=== PATIENT | female | born 1940 | race Caucasian/White ===

== ENCOUNTER 2024-04-30 16:29 | Inpatient (IN) | payer OTHER, BC ==
[2024-04-30] MEDS ORDERED: ASPIRIN 81 MG CHEWABLE TABLET ONE (16:45)
[2024-04-30] MEDS ORDERED: NA CHLORIDE 0.9% 1,000 ML ONE ×2 (16:45→17:46)
[2024-04-30 17:12] LABS: Hematocrit 40.1 % (36.0-45.0); Hemoglobin 13.5 g/dL (12.0-15.0); MCH 33.5 pg (27.0-35.0); MCHC 33.6 g/dL (32.0-36.0); MCV 99.8 fL (80-100); MPV 9.1 fL (7.6-11.3); Platelets 232 thou/uL (152-406); RBC Red Blood Cell Count 4.02 M/uL (3.86-4.86); Red Cell Distribution Width 14.1 % (12.1-15.2)
[2024-04-30] MEDS ORDERED: METOPROLOL TARTRATE 5 MG/5 ML INJ IV ONE (17:18)
[2024-04-30 17:30] LABS: PT Prothrombin Time 11.1 SECONDS (9.4-12.5); PTT, Activated Partial Thromb 27.8 SECONDS (24.3-36.9); Protime INR 1.06
--- NOTE | 2024-04-30 17:34 | RAD REPORT ---
EXAM: Chest Single View HISTORY: chest nely COMPARISON: 07/11/2016 FINDINGS: LUNGS/PLEURA: New consolidative airspace disease present the right lower lobe. MEDIASTINUM: The mediastinal silhouette is within normal limits. CARDIAC: Mild cardiomegaly UPPER ABDOMEN: No significant abnormality. BONES: No acute abnormality. LINES/TUBES/OTHER: N/A IMPRESSION: New right lower lobe consolidation concerning for pneumonia/pneumonitis. Imaging follow-up in 4-6 wee ks is suggested to ensure improvement and/or resolution.
[2024-04-30 17:59] LABS: Albumin 2.8 g/dL (3.4-5.0); Albumin/Globulin Ratio 0.5 (1.1-1.8); Anion Gap 19.2 mEq/L (5.0-15.0); Bilirubin Total 0.6 mg/dL (0.2-1.0); Globulin 5.5 g/dL (2.3-3.5); Magnesium 2.5 mg/dL (1.6-2.4); Potassium 3.2 mEq/L (3.5-5.1); Protein, Total 8.3 g/dL (6.4-8.2)
[2024-04-30 18:12] LABS: Troponin High Sensitivity 305.5 pg/mL (<58.9)
[2024-04-30 18:20] LABS: Differential Total Cells Count 100; Eosinophils 1 % (0-3); Lymphocytes 36 % (15-42); Monocytes 14 % (0-10); Segmented Neutrophils 49 % (40-80)
[2024-04-30 18:23] LABS: Anisocytosis 1+; Blood Morphology Comment NOTED (NOT SEEN); Platelet Estimate ADEQ; Poikilocytosis 1+
[2024-04-30] MEDS ORDERED: DIGOXIN 0.25 MG/ML AMP ONE (18:35)
[2024-04-30] MEDS ORDERED: AZITHROMYCIN 500 MG INJ IVPB ONE (19:24)
[2024-04-30] MEDS ORDERED: CEFTRIAXONE 1000 MG/VIAL ONE (19:24)
[2024-04-30] MEDS ORDERED: NA CHLORIDE 0.9% 50 ML ONE (19:25)
[2024-04-30] MEDS ORDERED: NA CHLORIDE 0.9% 250 ML ONE (19:25)
--- NOTE | 2024-04-30 19:46 | EDPHYS ---
Physician Documentation [facility] Name: Lizbet Mackenzie Age: 84 yrs Sex: Female : 1940 Arrival Date: 04/30/2024 Time: 16:29 Bed 2 Private MD: ED Physician Magdiel Mclaughlin HPI: 04/30 16:54 This 84 yrs old Female presents to ER via Unassigned with complaints of Chest Pain, ms3 Breathing Difficulty, Decreased Appetite. 16:54 Lizbet Mackenzie presents to the Emergency Department with a history of atrial ms3 fibrillation, myesthenia gravis, and bronchiectasis. She reports feeling unwell since [place], with worsening symptoms over the weekend. She has been unable to eat or drink adequately, consuming only minimal fluids and some ice cream, and experiencing diarrhea. She does not recall events from Monday.. Historical: - Allergies: 16:56 No Known Allergies; cm10 - Home Meds: 16:56 losartan-hydrochlorothiazide 100-25 mg oral tablet [Active]; pyridostigmine bromide 60 cm10 mg oral tablet three times a day [Active]; metoprolol tartrate 50 mg Oral tablet daily [Active]; prednisone 1 mg Oral tablet 2 tabs daily [Active]; Xyzal 5 mg oral tablet 1 tab daily [Active]; - PMHx: 16:56 Myasthenia Gravis; Hypertensive disorder; cm10 - Immunization history:: Adult Immunizations up to date. - Infectious Disease History:: Denies. - Social history:: Smoking status: unknown. ROS: 16:54 Constitutional: Negative for fever, and chills. Cardiovascular: Negative for chest ms3 pain, and palpitations. Abdomen/GI: Negative for abdominal pain, nausea, vomiting, diarrhea, and constipation, 16:54 MS/Extremity: Negative for injury and deformity, Skin: Negative for injury, rash, and discoloration, 16:54 Respiratory: Positive for cough, shortness of breath, Exam: 16:54 Constitutional: This is a well developed, well nourished patient who is awake, alert, ms3 and in no acute distress. Respiratory: Lungs have equal breath sounds bilaterally, clear to auscultation and percussion. No rales, rhonchi or wheezes noted. No increased work of breathing, no retractions or nasal flaring. 16:54 Skin: Warm, dry with normal turgor. Normal color with no rashes, no lesions, and no evidence of cellulitis. MS/ Extremity: Pulses equal, no cyanosis. Neurovascular intact. Full, normal range of motion. 16:54 Cardiovascular: Rate: tachycardic, Rhythm: irregularly irregular, Edema: is not appreciated, 17:03 ECG was reviewed by the Attending Physician. ms3 Vital Signs: 16:45 BP 114 / 85; Pulse 134; Resp 20; Pulse Ox 100% on 3 lpm NC; ld1 16:53 BP 109 / 73; Pulse 154; Resp 24; Temp 96.4(TE); Pulse Ox 90% on R/A; Weight 58.51 kg; ld1 Height 5 ft. 5 in. ; Pain 8/10; 17:24 BP 105 / 88; Pulse 136; Resp 18; Pulse Ox 100% on 3 lpm NC; ld1 18:00 BP 108 / 90; Pulse 144; Resp 27; Pulse Ox 100% on 3 lpm NC; ld1 19:10 BP 106 / 66; Pulse 127; Resp 22; Temp 97.7(O); Pulse Ox 98% on 3 lpm NC; mt4 19:45 BP 124 / 73; Pulse 106; Resp 16; Pulse Ox 98% on 3 lpm NC; mt4 21:15 BP 123 / 69; Pulse 105; Resp 18; Pulse Ox 98% on 3 lpm NC; mt4 21:28 BP 123 / 69; Pulse 110; Resp 18; Pulse Ox 97% ; br2 22:50 BP 120 / 69; Pulse 108; Resp 16; Pulse Ox 95% on 3 lpm NC; mt4 16:53 Body Mass Index 21.47 (58.51 kg, 165.1 cm) ld1 16:53 Pain Scale: Adult ld1 Wilsey Coma Score: 20:00 Eye Response: spontaneous(4). Motor Response: obeys commands(6). Verbal Response: mt4 oriented(5). Total: 15. MDM: 16:54 Medical Screening Exam initiated ms3 16:54 Differential diagnosis: abnormal EKG, congestive heart failure pneumonia, Dehydration ms3 vs Gastroenteritis. 17:52 Transition of care: After a detail discussion of the patient's case, care is ms3 transferred to Magdiel Mclaughlin MD. ED course: Sepsis re-evaluation complete. 19:46 Data reviewed: vital signs, nurses notes, lab test result(s), EKG, radiologic studies. rt Consideration of Admission/Observation Patient was admitted/placed on observation. Management of patient was discussed with the following: Hospitalist: Agrees to admit. I considered the following discharge prescriptions or medication management in the emergency department Medications were administered in the Emergency Department. See MAR. Independent interpretation of the following test(s) in the Emergency Department X-Ray: My interpretation is Infiltrate seen on interpretation of x-ray images. Care significantly affected by the following chronic conditions: Hypertension. Counseling: I had a detailed discussion with the patient and/or guardian regarding the historical points, exam findings, and any diagnostic results supporting the discharge/admit diagnosis, lab results, radiology results, the need for further work-up and treatment in the hospital. Response to treatment: the patient's symptoms have markedly improved after treatment. 19:51 Post IV fluid administration reassessment for Sepsis: Client prescribed 30 mL/kg IVF. rt Sepsis focused reassessment complete. Focused assessment performed: April 30, 2024 at 19:51 Heart: Irregular rhythm. Tachycardia noted. Capillary refill examination performed. Capillary refill noted to be brisk. Peripheral pulse evaluation performed. Neuro: Cardio: Cardiovascular exam improved from previous exam. Heart rate and blood pressure have improved. 04/30 16:38 Order name: CBC with Diff; Complete Time: 18:30 ms3 04/30 16:38 Order name: Magnesium; Complete Time: 18:23 ms3 04/30 16:38 Order name: NT PRO-BNP; Complete Time: 18:23 ms3 04/30 16:38 Order name: PT-INR; Complete Time: 17:39 ms3 04/30 16:38 Order name: Troponin HS; Complete Time: 18:23 ms3 04/30 16:52 Order name: Blood Culture Adult (2) ms3 04/30 16:52 Order name: Lactate w/ 2H reflex if indic.; Complete Time: 18:02 ms3 04/30 17:08 Order name: PTT, Activated Partial Thromb; Complete Time: 17:39 EDMS 04/30 17:08 Order name: Comprehensive Metabolic Panel; Complete Time: 18:23 EDMS 04/30 17:50 Order name: Ghost Lactate-NO COLLECT Timer EDMS 04/30 18:21 Order name: Manual Differential; Complete Time: 18:30 EDMS 04/30 19:53 Order name: Urinalysis w/ reflexes EDMS 04/30 19:53 Order name: CBC with Automated Diff EDMS 04/30 19:53 Order name: CBC with Automated Diff EDMS 04/30 19:53 Order name: Comprehensive Metabolic Panel EDMS 04/30 19:53 Order name: Comprehensive Metabolic Panel EDMS 04/30 19:53 Order name: Magnesium EDMS 04/30 19:53 Order name: Magnesium EDMS 04/30 19:53 Order name: Phosphorus EDMS 04/30 19:53 Order name: Phosphorus EDMS 04/30 19:53 Order name: Troponin High Sensitivity EDMS 04/30 19:53 Order name: Troponin High Sensitivity EDMS 04/30 19:53 Order name: Troponin High Sensitivity EDMS 04/30 19:53 Order name: Troponin High Sensitivity EDMS 04/30 16:38 Order name: XRAY Chest (1 view); Complete Time: 17:39 ms3 04/30 16:38 Order name: Cardiac monitoring; Complete Time: 16:44 ms3 04/30 16:38 Order name: EKG - Nurse/Tech; Complete Time: 16:44 ms3 04/30 16:38 Order name: IV Saline Lock; Complete Time: 17:00 ms3 04/30 16:38 Order name: Labs collected and sent; Complete Time: 17:00 ms3 04/30 16:38 Order name: O2 Per Protocol; Complete Time: 16:44 ms3 04/30 16:38 Order name: O2 Sat Monitoring; Complete Time: 16:44 ms3 04/30 16:52 Order name: Accucheck; Complete Time: 16:59 ms3 04/30 16:52 Order name: IV Saline Lock - Large Bore; Complete Time: 16:59 ms3 04/30 16:52 Order name: Vital Signs; Complete Time: 16:59 ms3 04/30 17:00 Order name: Oxygen; Complete Time: 17:00 ms3 EC:03 Rate is 157 beats/min. Rhythm is irregularly irregular. Left axis deviation noted. ms3 Clinical impression: Atrial Fibrillation and with RVR. Interpreted by me. Reviewed by me. Administered Medications: 17:00 Drug: Aspirin PO Chewable Tablet 324 mg PO once; 81 mg tablets x 4 Route: PO; ld1 21:00 Follow up: Response: No adverse reaction mt4 17:00 Drug: NS 0.9% IV 1000 ml IV at 1000 ml once; to be given as a bolus over 60 minutes ld1 Route: IV; Rate: 1000 ml; Site: left forearm; 17:30 Follow up: Response: No adverse reaction; IV Status: Completed infusion; IV Intake: cm10 1000ml 17:25 Drug: Metoprolol IVP 5 mg IVP every 5 minutes; Hold for SBP < 100 or HR < 60. x3 Route: cm10 IVP; Site: left antecubital; 17:30 Follow up: Response: Cardiac rhythm is unchanged cm10 17:48 Drug: NS 0.9% IV 1000 ml IV at 1 bolus Per protocol; to be given as a bolus over 60 cm10 minutes Route: IV; Rate: 1 bolus; Site: left antecubital; 23:13 Follow up: Response: No adverse reaction; IV Status: Completed infusion; IV Intake: mt4 1000ml 18:40 Drug: Digoxin IVP 0.5 mg IVP once {Note: Administered by Richelle Barclay RN.} Route: IVP; ss Site: left antecubital; 21:00 Follow up: Response: No adverse reaction mt4 19:45 Drug: Rocephin IV 1 grams IV at calculated rate once; Given slow IV push per pharmacy mt4 instructions Route: IV; Rate: calculated rate; Site: left antecubital; 21:00 Follow up: Response: No adverse reaction; IV Status: Completed infusion mt4 19:45 Drug: AZITHromycin IVPB 500 mg IVPB once over 1 hrs; (mix in 250 mL NS) Route: IVPB; mt4 Infused Over: 1 hrs; Site: left antecubital; 23:12 Follow up: Response: No adverse reaction; IV Status: Completed infusion mt4 Disposition: 19:46 Critical Care:. rt Disposition Summary: 04/30/24 19:46 Hospitalization Ordered Notes: Hospitalization Status: Inpatient Admission rt Provider: Benoit Mason rt Location: Intensive Care Unit rt Condition: Guarded rt Problem: new rt Symptoms: have improved rt Bed/Room Type: Standard rt Room Assignment: 6-(04/30/24 22:02) kmf Diagnosis - Community-acquired pneumonia rt - Septic shock rt - Atrial fibrillation with rapid ventricular rate rt Forms: - Medication Reconciliation Form rt - SBAR form rt - Leadership Thank You Letter rt Critical care time excluding procedures: 19:46 Critical care time: Bedside Care: 30 minutes, Consultation: 5 minutes. Total time: 35 rt minutes Signatures: Dispatcher [employer] EDMS Krystyna Ziegler, RN RN ss Ning, Barrett, DO DO ms3 Richelle Barclay, RN RN ld1 Magdiel Mclaughlin MD MD rt Lupe Cyr RN RN cm10 Peyton Avilez [facility] Chelle Boyd, TAVO RN mt4 Corrections: (The following items were deleted from the chart) 16:38 16:38 Chest Single View+RAD.RAD.BRZ ordered. EDMS EDMS 17:00 17:00 Chest Single View+RAD.RAD.BRZ ordered. EDMS EDMS 17:08 16:38 BASIC METABOLIC PANEL+C.LAB.BRZ ordered. EDMS EDMS 17:08 16:53 COMPREHENSIVE METABOLIC PANEL+C.LAB.BRZ ordered. EDMS EDMS 17:08 16:53 PTT, ACTIVATED+COAG.LAB.BRZ ordered. EDMS EDMS 22:02 19:46 rt kmf
--- NOTE | 2024-04-30 19:46 | ER ---
Nurse's Notes [facility] Name: Lizbet Mackenzie Age: 84 yrs Sex: Female : 1940 Arrival Date: 04/30/2024 Time: 16:29 Bed 2 Private MD: Diagnosis: Community-acquired pneumonia;Septic shock;Atrial fibrillation with rapid ventricular rate Presentation: 04/30 16:53 Chief complaint: Patient states: Diarrhea, vomiting, chest pain onset Monday. Pt states cm10 that her pain radiates to her back. Pt cool and diaphoretic upon arrival. Coronavirus screen: Client denies travel out of the [place] in the last 14 days. Ebola Screen: No symptoms or risks identified at this time. Initial Sepsis Screen: Does the patient meet any 2 criteria? RR > 20 per min. HR > 90 bpm. Does the patient have a suspected source of infection? No. Patient's initial sepsis screen is negative. Risk Assessment: Do you want to hurt yourself or someone else? Patient reports no desire to harm self or others. Onset of symptoms was April 26, 2024. 16:53 Acuity: RADHA 2 cm10 16:53 Method Of Arrival: Wheelchair cm10 Historical: - Allergies: 16:56 No Known Allergies; cm10 - Home Meds: 16:56 losartan-hydrochlorothiazide 100-25 mg oral tablet [Active]; pyridostigmine bromide 60 cm10 mg oral tablet three times a day [Active]; metoprolol tartrate 50 mg Oral tablet daily [Active]; prednisone 1 mg Oral tablet 2 tabs daily [Active]; Xyzal 5 mg oral tablet 1 tab daily [Active]; - PMHx: 16:56 Myasthenia Gravis; Hypertensive disorder; cm10 - Immunization history:: Adult Immunizations up to date. - Infectious Disease History:: Denies. - Social history:: Smoking status: unknown. Screenin:45 [facility] ED Fall Risk Assessment (Adult) History of falling in the last 3 months, ld1 including since admission No falls in past 3 months (0 pts) Confusion or Disorientation No (0 pts) Intoxicated or Sedated No (0 pts) Impaired Gait No (0 pts) Mobility Assist Device Used No (0 pt) Altered Elimination No (0 pt) Score/Fall Risk Level 0 - 2 = Low Risk Oriented to surroundings, Maintained a safe environment, Hourly rounding (assess needs \T\ fall precautionary measures) done. Abuse screen: Denies threats or abuse. Denies injuries from another. Nutritional screening: No deficits noted. Tuberculosis screening: No symptoms or risk factors identified. 20:00 Exposure risk/Travel Screening: None identified. mt4 Assessment: 16:45 General: Appears in no apparent distress. uncomfortable, Behavior is calm, cooperative, ld1 appropriate for age. Pain: Complains of pain in chest Pain does not radiate. Pain currently is 8 out of 10 on a pain scale. Quality of pain is described as throbbing, Pain began suddenly, Is continuous. Neuro: Level of Consciousness is awake, alert, obeys commands, Oriented to person, place, time, situation. Cardiovascular: Reports diaphoresis, fatigue, Capillary refill < 3 seconds Rhythm is atrial fibrillation. Respiratory: Airway is patent Respiratory effort is even, labored, the patient has mild shortness of breath. 16:45 GI: Abdomen is round non-distended. GI: Reports intolerance of food. : No signs ld1 and/or symptoms were reported regarding the genitourinary system. EENT: No signs and/or symptoms were reported regarding the EENT system. Derm: Skin is diaphoretic, Skin temperature is cool. Musculoskeletal: No signs and/or symptoms reported regarding the musculoskeletal system. 18:12 Reassessment: Dr. Barclay and Dr. Mclaughlin notified of critical lab value: Troponin 305. ss 18:56 Reassessment: Patient appears in no apparent distress at this time. No changes from ld1 previously documented assessment. Patient and/or family updated on plan of care and expected duration. Pain level reassessed. 20:00 Reassessment: Patient and/or family updated on plan of care and expected duration. Pain mt4 level reassessed. Patient states symptoms have improved. 20:00 General: Appears in no apparent distress. comfortable. Neuro: Level of Consciousness is mt4 awake, alert, obeys commands, Oriented to person, place, time, situation, Appropriate for age. Cardiovascular: Capillary refill < 3 seconds Rhythm is atrial fibrillation. Respiratory: Airway is patent Respiratory effort is unlabored, Respiratory pattern is regular, symmetrical. GI: Abdomen is non-distended. : Denies burning with urination. Musculoskeletal: Range of motion: intact in all extremities, Reports weakness in right leg and left leg. 22:00 Reassessment: Patient and/or family updated on plan of care and expected duration. Pain mt4 level reassessed. Patient states feeling better. Patient states symptoms have improved. Vital Signs: 16:45 BP 114 / 85; Pulse 134; Resp 20; Pulse Ox 100% on 3 lpm NC; ld1 16:53 BP 109 / 73; Pulse 154; Resp 24; Temp 96.4(TE); Pulse Ox 90% on R/A; Weight 58.51 kg; ld1 Height 5 ft. 5 in. ; Pain 8/10; 17:24 BP 105 / 88; Pulse 136; Resp 18; Pulse Ox 100% on 3 lpm NC; ld1 18:00 BP 108 / 90; Pulse 144; Resp 27; Pulse Ox 100% on 3 lpm NC; ld1 19:10 BP 106 / 66; Pulse 127; Resp 22; Temp 97.7(O); Pulse Ox 98% on 3 lpm NC; mt4 19:45 BP 124 / 73; Pulse 106; Resp 16; Pulse Ox 98% on 3 lpm NC; mt4 21:15 BP 123 / 69; Pulse 105; Resp 18; Pulse Ox 98% on 3 lpm NC; mt4 21:28 BP 123 / 69; Pulse 110; Resp 18; Pulse Ox 97% ; br2 22:50 BP 120 / 69; Pulse 108; Resp 16; Pulse Ox 95% on 3 lpm NC; mt4 16:53 Body Mass Index 21.47 (58.51 kg, 165.1 cm) ld1 16:53 Pain Scale: Adult ld1 Azalia Coma Score: 20:00 Eye Response: spontaneous(4). Motor Response: obeys commands(6). Verbal Response: mt4 oriented(5). Total: 15. ED Course: 16:33 Patient arrived in ED. al6 16:37 Barrett Barclay DO is Attending Physician. ms3 16:44 Richelle Barclay, RN is Primary Nurse. ld1 16:45 No provider procedures requiring assistance completed. Oxygen administration via nasal ld1 cannula. 16:45 Patient has correct armband on for positive identification. Placed in gown. Bed in low ld1 position. Call light in reach. Side rails up X2. hall monitor on. Pulse ox on. NIBP on. Door closed. Noise minimized. Warm blanket given. 16:56 Triage completed. cm10 17:00 Inserted saline lock: 22 gauge in left antecubital area, using aseptic technique. Blood ld1 collected. Flushed with 10 mL NS. 17:00 CBC with Diff Sent. ld1 17:00 Magnesium Sent. ld1 17:00 Arm band placed on right wrist. cm10 17:01 NT PRO-BNP Sent. ld1 17:01 PT-INR Sent. ld1 17:01 Troponin HS Sent. ld1 17:01 Lactate w/ 2H reflex if indic. Sent. ld1 17:01 EKG done, by ED staff, reviewed by Barrett Barclay DO. Missed attempt(s): 20 gauge in right cm10 forearm. Bleeding controlled, band aid applied, catheter tip intact. 17:29 XRAY Chest (1 view) In Process Unspecified. EDMS 17:53 Attending Physician role handed off by Barrett Barclay DO ms3 17:53 Magdiel Mclaughlin MD is Attending Physician. ms3 18:35 Missed attempt(s): 24 gauge Bleeding controlled, band aid applied, catheter tip intact. ty 18:36 Repeat lab(s) drawn. by ED staff, sent to lab. First set of blood cultures drawn by ED ty staff. 18:42 Second set of blood cultures drawn by ED staff. ty 19:45 Benoit Mason MD is Hospitalizing Provider. rt 20:00 No apparent distress. Resting quietly. mt4 20:00 Provided Education on: medication and labs . mt4 20:00 Bed in low position. Call light in reach. Side rails up X2. hall monitor on. Pulse mt4 ox on. NIBP on. Door closed. Noise minimized. Visitors limited. Warm blanket given. Pillow given. Verbal reassurance given. Administered Medications: 17:00 Drug: Aspirin PO Chewable Tablet 324 mg PO once; 81 mg tablets x 4 Route: PO; ld1 21:00 Follow up: Response: No adverse reaction mt4 17:00 Drug: NS 0.9% IV 1000 ml IV at 1000 ml once; to be given as a bolus over 60 minutes ld1 Route: IV; Rate: 1000 ml; Site: left forearm; 17:30 Follow up: Response: No adverse reaction; IV Status: Completed infusion; IV Intake: cm10 1000ml 17:25 Drug: Metoprolol IVP 5 mg IVP every 5 minutes; Hold for SBP < 100 or HR < 60. x3 Route: cm10 IVP; Site: left antecubital; 17:30 Follow up: Response: Cardiac rhythm is unchanged cm10 17:48 Drug: NS 0.9% IV 1000 ml IV at 1 bolus Per protocol; to be given as a bolus over 60 cm10 minutes Route: IV; Rate: 1 bolus; Site: left antecubital; 23:13 Follow up: Response: No adverse reaction; IV Status: Completed infusion; IV Intake: mt4 1000ml 18:40 Drug: Digoxin IVP 0.5 mg IVP once {Note: Administered by Richelle Barclay RN.} Route: IVP; Site: left antecubital; 21:00 Follow up: Response: No adverse reaction mt4 19:45 Drug: Rocephin IV 1 grams IV at calculated rate once; Given slow IV push per pharmacy mt4 instructions Route: IV; Rate: calculated rate; Site: left antecubital; 21:00 Follow up: Response: No adverse reaction; IV Status: Completed infusion mt4 19:45 Drug: AZITHromycin IVPB 500 mg IVPB once over 1 hrs; (mix in 250 mL NS) Route: IVPB; mt4 Infused Over: 1 hrs; Site: left antecubital; 23:12 Follow up: Response: No adverse reaction; IV Status: Completed infusion mt4 Medication: 16:45 VIS not applicable for this client. ld1 Intake: 17:30 IV: 1000ml; Total: 1000ml. cm10 23:13 IV: 1000ml; Total: 2000ml. mt4 Outcome: 19:46 Decision to Hospitalize by Provider. rt 23:14 Patient left the ED. mt4 Signatures: Dispatcher [employer] EDMS Krystyna Ziegler RN RN ss Barrett Barclay DO DO ms3 Richelle Barclay RN RN ld1 Magdiel Mclaughlin MD MD rt Lupe Cyr RN RN cm10 Ancelmo García Molinec, RN RN mt4 Earlene Gustafson RN RN br2 Pia Cao6 Corrections: (The following items were deleted from the chart) 17:00 16:53 BP 109 / 73; Pulse 154bpm; Resp 24bpm; Pulse Ox 90% RA; Temp 93F Oral; 58.51 kg; ld1 Height 5 ft. 5 in.; BMI: 21.4; Pain 8/10, Adult; cm10 17:08 17:00 BASIC METABOLIC PANEL+C.LAB.BRZ drawn and sent. ld1 EDMS 17:08 17:01 COMPREHENSIVE METABOLIC PANEL+C.LAB.BRZ drawn and sent. ld1 EDMS 17:08 17:01 PTT, ACTIVATED+COAG.LAB.BRZ drawn and sent. ld1 EDMS 17:34 16:45 Patient maintains SpO2 saturation greater than 95% on room air. ld1 ld1 17:36 16:45 [facility] ED Fall Risk Assessment (Adult) History of falling in the last 3 months, ld1 including since admission No falls in past 3 months (0 pts) Confusion or Disorientation No (0 pts) Intoxicated or Sedated No (0 pts) Impaired Gait No (0 pts) Mobility Assist Device Used No (0 pt) Altered Elimination No (0 pt) Score/Fall Risk Level 0 - 2 = Low Risk Oriented to surroundings, Maintained a safe environment, Educated pt \T\ family on fall prevention, incl call for assistance when getting out of bed, Assessed \T\ reinforced patient's understanding of fall precautions, Provided non-skid footwear, Hourly rounding (assess needs \T\ fall precautionary measures) done, Used ambulatory aids as needed (educated on \T\ assisted with), Used gait belt as appropriate ld1 23:09 20:00 Door closed. Lights dimmed. Warm blanket given. Pillow given. Oral care given. [id number]
[2024-04-30] MEDS ORDERED: ONDANSETRON 4 MG/2 ML VIAL IV PRN (19:47)
--- NOTE | 2024-04-30 19:53 | P.HP ---
Certification for Inpatient Patient admitted to: Inpatient With expected LOS: >2 Midnights Practitioner: I am a practitioner with admitting privileges, knowledge of patient current condition, hospital course, and medical plan of care. Services: Services provided to patient in accordance with Admission requirements found in Title 42 Section 412.3 of the Code of Federal Regulations Patient History Date of Service: 05/01/24 Reason for admission: Afib History of Present Illness: 84 yrs old Female with past medical history of myasthenia gravis, hypertension, history of atrial fibrillation, CHF, followed by , history of bronchiectasis Brought to ER with shortness of breath and chest discomfort and palpitation decreased appetite which has been going on for the last 3 days and has been progressively getting worse and was brought to ER. Patient complains of palpitation. Denies any chest pain No fever or chills. No nausea vomiting or diarrhea. No sick contacts. Patient was assessed in the ER and is admitted for further management of A-fib with RVR. Allergies No Known Allergies Allergy (Unverified 04/30/24 23:10) Home medications list reviewed: Yes Home Medications: Ardes2 2 tab PO DAILY 04/30/24 Cholecalciferol (Vitamin D3) [Vitamin D3] 5,000 unit PO DAILY 04/30/24 Dupilumab [Dupixent Pen] 200 mg SQ EVERY 7TH DAY 04/30/24 Ipratropium/Albuterol Sulfate [Combivent Respimat Inhal [place]] 4 gm IH DAILY PRN 04/30/24 Levocetirizine Dihydrochloride [Xyzal] 5 mg PO DAILY 04/30/24 Losartan/Hydrochlorothiazide [Losartan-Hctz 100-25 mg Tab] 1 tab PO DAILY 04/30/24 Metoprolol Tartrate [Lopressor] 50 mg PO DAILY 04/30/24 cycloSPORINE [Restasis] 1 drop EACH EYE DAILY 04/30/24 cycloSPORINE [Vevye] 1 drop EACH EYE DAILY 04/30/24 predniSONE [Prednisone*] 2 tab PO DAILY 04/30/24 pyRIDostigmine bromide [Pyridostigmine [place]] 1 tab PO TID 04/30/24 - Past Medical/Surgical History Past Medical History: Reviewed- Non-Contributory -: Myasthenia gravisHypertension Past Surgical History: Reviewed- Non-Contributory - Family History Family History: Reviewed- Non-Contributory - Family History Mother -: Lung disease, Cancer Notes: Lung Father -: Lung disease, Cancer Notes: Lung Sister -: Diabetes Notes: from complications of diabetes - Social History Smoking Status: Never smoker Review of Systems 10-point ROS is otherwise unremarkable Physical Examination - Physical Exam General: Alert, Oriented x3, Moderate distress HEENT: Atraumatic, Normocephalic Neck: 2+ carotid pulse no bruit Respiratory: Normal air movement, Crackles/rales Cardiovascular: Irregular heart rate/rhythm Capillary refill: <2 Seconds Gastrointestinal: Soft and benign, W/out hepatosplenomegaly Musculoskeletal: No clubbing Integumentary: No rashes, No significant lesion, No tenderness/swelling Neurological: Normal speech, Normal strength at 5/5 x4 extr, Cranial nerves 3-12 intact, Normal reflexes 2+, Normal affect Lymphatics: No axilla or inguinal lymphadenopathy - Studies Laboratory Data (last 24 hrs) 04/30/24 04/30/24 04/30/24 16:54 16:54 16:54 WBC 3.90 L Hgb 13.5 Hct 40.1 Plt Count 232 PT 11.1 INR 1.06 APTT 27.8 Sodium 130 L Potassium 3.2 L BUN 72 H Creatinine 4.42 H Glucose 210 H Magnesium 2.5 H Total Bilirubin 0.6 AST 38 H ALT 27 Alkaline Phosphatase 56 04/30/24 04/30/24 16:52 16:52 WBC Hgb Hct Plt Count PT INR APTT Cancelled Sodium Cancelled Potassium Cancelled BUN Cancelled Creatinine Cancelled Glucose Cancelled Magnesium Total Bilirubin Cancelled AST Cancelled ALT Cancelled Alkaline Phosphatase Cancelled Assessment and Plan - Plan A-fib with RVR Started on Cardizem drip Admit to ICU Monitor closely on telemetry NSTEMI possibly type II Will trend cardiac enzymes Will monitor telemetry Started on aspirin and statin EKG did not show any acute changes suggestive of ischemia Patient denies any chest pain Cardiology consult Hyponatremia Hypokalemia Acute kidney injury Monitor renal parameters Electrolytes monitor and replace accordingly Nephrology consulted Lactic acidosis > 8 Will trend lactic acid levels Right lower lobe pneumonia noted Started on antibiotics Will obtain cultures Change antibiotics as per sensitivity Hypertension Antihypertensives titrated Continue home medications and titrate as needed Hyperlipidemia Continue statin GI/DVT prophylaxis Advanced directive full code Discharge Plan: Home Plan to discharge in: 48 Hours - Advance Directives Does patient have a Living Will: No Does patient have a Durable POA for Healthcare: No - Code Status/Comfort Care Code Status: Full Code Time Spent Managing Pts Care (In Minutes): 55
[2024-05-01] MEDS: HEPARIN 5000 UNIT/ML 1 ML VIAL SQ SCH (01:00)
[2024-05-01] MEDS: dilTIAZem HCL 25 MG/5 ML VIAL IV ONE (03:31)
[2024-05-01] MEDS: NA CHLORIDE 0.9% 0 ML ONE (03:32)
[2024-05-01] MEDS: DILTIAZEM INJ 125 MG/25 ML 125 MG in NA CHLORIDE 0.9% 100 ML IV SCH (03:54)
[2024-05-01] MEDS: ASPIRIN EC 81 MG TAB PO SCH (04:34)
[2024-05-01] MEDS: METOPROLOL TARTRATE 5 MG/5 ML INJ IV STA (06:13)
[2024-05-01] MEDS: CEFEPIME 1 GM in NA CHLORIDE 0.9% 100 ML IV SCH (07:24)
[2024-05-01] MEDS: AZITHROMYCIN IV 500 MG in NA CHLORIDE 0.9% 250 ML IVPB SCH (07:25)
[2024-05-01] MEDS: NA CHLORIDE 0.9% 1,000 ML IV SCH (07:26)
[2024-05-01 08:14] LABS: Absolute Lymphocytes (CBC) 0.6 K/uL (0.7-4.9); Absolute Neutrophil 3.5 K/uL (1.8-8.0); Basophils % 0.1 % (0-1.3); Eosinophils % 0.1 % (0-4.4); Hematocrit 35.3 % (36.0-45.0); Lymphocytes % 13.7 % (15.3-44.8); MCH 33.5 pg (27.0-35.0); MCV 98.6 fL (80-100); MPV 8.8 fL (7.6-11.3); Monocytes % 0.2 % (3.3-12.3); Neutrophils % 85.9 % (41.7-73.7); Platelets 198 thou/uL (152-406); RBC Red Blood Cell Count 3.58 M/uL (3.86-4.86); Red Cell Distribution Width 13.8 % (12.1-15.2)
[2024-05-01 08:57] LABS: Albumin 2.2 g/dL (3.4-5.0); Albumin/Globulin Ratio 0.5 (1.1-1.8); Anion Gap 12.7 mEq/L (5.0-15.0); Bilirubin Total 0.4 mg/dL (0.2-1.0); Globulin 4.8 g/dL (2.3-3.5); Magnesium 2.3 mg/dL (1.6-2.4); Phosphorus 3.9 mg/dL (2.5-4.9); Potassium 2.7 mEq/L (3.5-5.1)
[2024-05-01 09:00] LABS: Troponin High Sensitivity 187.9 pg/mL (<58.9)
[2024-05-01] MEDS: Mupirocin NASAL 2 APPL/1 GM TUBE NAS SCH (09:34)
[2024-05-01] MEDS: METOPROLOL TAR 25 MG TAB PO SCH (09:34)
[2024-05-01] MEDS: KCL 20 MEQ/100 mL IVPB 20 MEQ/100 ML BAG IV SCH (09:34)
--- NOTE | 2024-05-01 10:33 | P.CNS ---
Date of Consult: 05/01/24 Chief Complaint: Afib History of Present Illness: Patient with PMH of atrial fibrillation, HTN, presented with generalized weakness, fatigue and palpitations, denies chest pain, no SOB, no syncope. Allergies No Known Allergies Allergy (Unverified 04/30/24 23:10) Home medications list reviewed: Yes Home Medications: Ardes2 2 tab PO DAILY 04/30/24 Cholecalciferol (Vitamin D3) [Vitamin D3] 5,000 unit PO DAILY 04/30/24 Dupilumab [Dupixent Pen] 200 mg SQ EVERY 7TH DAY 04/30/24 Ipratropium/Albuterol Sulfate [Combivent Respimat Inhal [place]] 4 gm IH DAILY PRN 04/30/24 Levocetirizine Dihydrochloride [Xyzal] 5 mg PO DAILY 04/30/24 Losartan/Hydrochlorothiazide [Losartan-Hctz 100-25 mg Tab] 1 tab PO DAILY 04/30/24 Metoprolol Tartrate [Lopressor] 50 mg PO DAILY 04/30/24 cycloSPORINE [Restasis] 1 drop EACH EYE DAILY 04/30/24 cycloSPORINE [Vevye] 1 drop EACH EYE DAILY 04/30/24 predniSONE [Prednisone*] 2 tab PO DAILY 04/30/24 pyRIDostigmine bromide [Pyridostigmine [place]] 1 tab PO TID 04/30/24 - Past Medical/Surgical History Diabetic: No -: Myasthenia gravisHypertension -: Hypertension -: Afib -: Bronchiectasis -: Glaucoma -: Ovary - Family History Mother Medical History: Lung disease, Cancer Notes: Lung Father Medical History: Lung disease, Cancer Notes: Lung Sister Medical History: Diabetes Notes: from complications of diabetes - Social History Smoking Status: Unknown if ever smoked Alcohol use: Yes CD- Drugs: No Caffeine use: Yes Place of Residence: Home Review of Systems 10-point ROS is otherwise unremarkable Physical Examination Temp Pulse Resp BP Pulse Ox 98.3 F 98 H 18 109/47 L 100 05/01/24 08:00 05/01/24 10:15 05/01/24 10:15 05/01/24 10:15 05/01/24 10:15 General: Alert, In no apparent distress HEENT: Atraumatic, PERRLA, Mucous membr. moist/pink, EOMI, Sclerae nonicteric Neck: Supple, 2+ carotid pulse no bruit, No LAD, Without JVD or thyroid abnormality Respiratory: Clear to auscultation bilaterally, Normal air movement Cardiovascular: Irregular heart rate/rhythm Gastrointestinal: Normal bowel sounds, No tenderness Musculoskeletal: No tenderness Integumentary: No rashes Neurological: Normal gait, Normal speech, Normal tone, Normal affect Lymphatics: No axilla or inguinal lymphadenopathy Laboratory Data (last 24 hrs) 04/30/24 04/30/24 04/30/24 16:54 16:54 16:54 WBC 3.90 L Hgb 13.5 Hct 40.1 Plt Count 232 PT 11.1 INR 1.06 APTT 27.8 Sodium 130 L Potassium 3.2 L BUN 72 H Creatinine 4.42 H Glucose 210 H Magnesium 2.5 H Total Bilirubin 0.6 AST 38 H ALT 27 Alkaline Phosphatase 56 04/30/24 04/30/24 16:52 16:52 WBC Hgb Hct Plt Count PT INR APTT Cancelled Sodium Cancelled Potassium Cancelled BUN Cancelled Creatinine Cancelled Glucose Cancelled Magnesium Total Bilirubin Cancelled AST Cancelled ALT Cancelled Alkaline Phosphatase Cancelled - Problems (1) Atrial fibrillation Current Visit: Yes Status: Acute Plan: per patient she was told she had AF in the past, continue Cardizem drip start lopressor 25 mg po TID Start Heparin drip for anticoagulation Get Echo NPO after midnight for possible LUANNE DCCV in am. (2) NSTEMI (non-ST elevated myocardial infarction) Current Visit: Yes Status: Acute Plan: patient troponin mild elevated, denies having chest pain, this can be related to DANY and AF continue to trend troponin until peak and down trending heparin drip echo (3) DANY (acute kidney injury) Current Visit: Yes Status: Acute Plan: not sure about etiology, patient with no signs of volume overload, her elevated NT-ProBNP can be secondary to acute kidney failure, will get echo and continue to monitor.
[2024-05-01 11:08] LABS: SARS-CoV-2 Antigen CONTROL BLUE LINE VIS/BG OK; SARS-CoV-2 Antigen Rapid Res Negative (Negative)
[2024-05-01] MEDS: HEPARIN/D5W 25,000 UNIT/500 ML BAG IV SCH (11:20)
--- NOTE | 2024-05-01 14:13 | P.PN ---
Subjective Date of Service: 05/01/24 Chief Complaint: Afib Subjective: Improving She stated she is feeling better, complaining of productive cough, but no fever or chill or chest pain, she had a good urine output since admission, denied any urinary symptoms such as dysuria or hematuria. She denied any hospitalization with IV antibiotics in the past 3 months. Review of Systems Other: Consitutional; fever(-), chills (-), rigor(-), night sweat(-), unintentional weight loss(-), malaise (-) HEENT; diplopia (-), rhinorrhea (-), epistaxis (-), otorrhea (-), otalgia (-) Respiratory; shortness of breath (-), wheezing (-), cough (+), sputum (+), pleuritic chest pain (-) Cardiovascular; chest pain (-), peripheral edema (-), paroxysmal nocturnal dyspnea (-), orthopnea (-) Gastrointestinal; nausea (-), vomiting (-), abdominal pain (-), diarrhea (-), constipation (-), melena (-), hematochezia (-) Genitourinary; urinary frequency (-), dysuria (-), urgency (-), flank pain (-), gross hematuria (-), incontinence (-) Skin; rash (-), pruritus (-) 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 General: Emaciated, not acutely ill looking, in no apparent distress,. HEENT: Normocephalic, atraumatic, nonicteric sclera, nonanemic conjunctive. Neck: Supple, without JVD or goiter or thyroid mass. Respiratory: Normal breathing effort, coarse breath sound bilaterally with rhonchi but no crackles or wheezing,. Cardiovascular: Irregularly and irregular heartbeat, no murmur no gallop. Gastrointestinal: Normal bowel sounds, nondistended, nontender, No ascites, , No masses, no hepatosplenomegaly. Extremities : No clubbing, No peripheral edema,. Integumentary: No rashes, petechia, suspected lesions. Lymphatics: No axilla or cervical lymphadenopathy. Neurology; alert awake oriented x3, no focal neurologic deficit, normal affection . mood and behavior. - Studies Laboratory Data (last 24 hrs) 04/30/24 04/30/24 04/30/24 16:54 16:54 16:54 WBC 3.90 L Hgb 13.5 Hct 40.1 Plt Count 232 PT 11.1 INR 1.06 APTT 27.8 Sodium 130 L Potassium 3.2 L BUN 72 H Creatinine 4.42 H Glucose 210 H Magnesium 2.5 H Total Bilirubin 0.6 AST 38 H ALT 27 Alkaline Phosphatase 56 04/30/24 04/30/24 16:52 16:52 WBC Hgb Hct Plt Count PT INR APTT Cancelled Sodium Cancelled Potassium Cancelled BUN Cancelled Creatinine Cancelled Glucose Cancelled Magnesium Total Bilirubin Cancelled AST Cancelled ALT Cancelled Alkaline Phosphatase Cancelled Microbiology Data (last 24 hrs): 04/30/24 18:36 Blood - Blood Anaerobic Blood Culture - Final 04/30/24 18:42 Blood - Blood Anaerobic Blood Culture - Final Assessment And Plan - Plan This is 84 years old female patient with complex medical problem including myasthenia gravis on immunosuppressant, hypertension, questionable pulmonary bronchiectasis, atrial fibrillation who presented to emergency room for shortness of breath and palpitation and chest pain for 3 days and found to have pneumonia, A-fib with rapid ventricular response and DANY and admitted in MICU 1. Community-acquired pneumonia, Her chest x-ray personally reviewed lobar pneumonia in the right lower lobe, No risk of MDR, I will modify the antibiotics to ceftriaxone 2 g daily and azithromycin for #2, I will order influenza A and B, COVID-19 and RSV 2. Gram-positive cocci bacteremia with sepsis related to #1 Blood culture positive 2 out of 4 gram-positive cocci in chains and pairs, continue empiric antibiotics with ceftriaxone and azithromycin, follow-up on blood culture sensitivity and identification, hemodynamically stable, will hold her hypertensive regimen 3. A-fib with AVR Heart rate at target on diltiazem drip, cardiology consulted, metoprolol added, planning on direct cardioversion, full anticoagulation with heparin, a transthoracic echocardiogram ordered #4 DANY secondary to #1 and #2 and dehydration Seems to responding to fluid challenge, creatinine down to 2.79 from 4.4, mild hypokalemia, bicarb 19, I will continue IV hydration with normal saline at 100 mL/h, Monitor input and output, renal function test daily #5 elevated troponin without acute coronary syndrome associated with #2, 3 and 4 Elevated troponin plateaued, no clinical sign of acute coronary syndrome DVT prophylaxis; heparin infusion Disposition; plan to downgrade in the next couple of days
[2024-05-01] MEDS: GUAIFENESIN 600 MG SA TAB PO SCH (20:25)
[2024-05-01] MEDS: ATORVASTATIN 40 MG TAB PO SCH (20:25)
[2024-05-01] MEDS: PYRIDOSTIGMINE 60 MG TABLET PO SCH (20:25)
--- NOTE | 2024-05-01 21:59 | P.CNS ---
Date of Consult: 05/01/24 Reason for Consult: DANY Requesting Physician: INDIO Ivan Chief Complaint: Afib History of Present Illness: 84 yrs old Female with past medical history of myasthenia gravis, hypertension, history of atrial fibrillation, CHF, followed by , history of bronchiectasis Brought to ER with shortness of breath and chest discomfort and palpitation decreased appetite which has been going on for the last 3 days and has been progressively getting worse and was brought to ER. Patient complains of palpitation. Denies any chest pain No fever or chills. No nausea vomiting or diarrhea. No sick contacts. Patient was assessed in the ER and is admitted for further management of A-fib with RVR. [id number] 16:54 This 84 yrs old Female presents to ER via Unassigned with complaints of Chest Pain, ms3 Breathing Difficulty, Decreased Appetite. 16:54 Lizbet Mackenzie presents to the Emergency Department with a history of atrial ms3 fibrillation, myesthenia gravis, and bronchiectasis. She reports feeling unwell since Monday, with worsening symptoms over the weekend. She has been unable to eat or drink adequately, consuming only minimal fluids and some ice cream, and experiencing diarrhea. She does not recall events from Monday.. Allergies No Known Allergies Allergy (Unverified 04/30/24 23:10) Home medications list reviewed: Yes Home Medications: Ardes2 2 tab PO DAILY 04/30/24 Cholecalciferol (Vitamin D3) [Vitamin D3] 5,000 unit PO DAILY 04/30/24 Dupilumab [Dupixent Pen] 200 mg SQ EVERY 7TH DAY 04/30/24 Ipratropium/Albuterol Sulfate [Combivent Respimat Inhal [place]] 4 gm IH DAILY PRN 04/30/24 Levocetirizine Dihydrochloride [Xyzal] 5 mg PO DAILY 04/30/24 Losartan/Hydrochlorothiazide [Losartan-Hctz 100-25 mg Tab] 1 tab PO DAILY 04/30/24 Metoprolol Tartrate [Lopressor] 50 mg PO DAILY 04/30/24 cycloSPORINE [Restasis] 1 drop EACH EYE DAILY 04/30/24 cycloSPORINE [Vevye] 1 drop EACH EYE DAILY 04/30/24 predniSONE [Prednisone*] 2 tab PO DAILY 04/30/24 pyRIDostigmine bromide [Pyridostigmine [place]] 1 tab PO TID 04/30/24 - Past Medical/Surgical History Diabetic: No -: Myasthenia gravisHypertension -: HTN -: Afib -: Bronchiectasis -: Glaucoma -: Ovary - Family History Mother Medical History: Lung disease, Cancer Notes: Lung Father Medical History: Lung disease, Cancer Notes: Lung Sister Medical History: Diabetes Notes: from complications of diabetes - Social History Smoking Status: Unknown if ever smoked Alcohol use: Yes CD- Drugs: No Caffeine use: Yes Place of Residence: Home Review of Systems 10-point ROS is otherwise unremarkable General: Weakness Physical Examination Temp Pulse Resp BP Pulse Ox 98.2 F 96 H 23 H 126/64 95 05/01/24 20:00 05/01/24 21:30 05/01/24 21:30 05/01/24 21:30 05/01/24 21:30 General: In no apparent distress, Oriented x3, Cooperative HEENT: Atraumatic Neck: Supple Respiratory: Normal air movement Cardiovascular: No edema, Normal S1 S2 Gastrointestinal: Soft and benign, Non-distended Musculoskeletal: No clubbing, No contractures Integumentary: No rashes, No cyanosis Neurological: Normal speech Blood work reviewed in the chart. Imagings Data: EXAM: Chest Single View HISTORY: chest nely COMPARISON: 07/11/2016 FINDINGS: LUNGS/PLEURA: New consolidative airspace disease present the right lower lobe. MEDIASTINUM: The mediastinal silhouette is within normal limits. CARDIAC: Mild cardiomegaly UPPER ABDOMEN: No significant abnormality. BONES: No acute abnormality. LINES/TUBES/OTHER: N/A IMPRESSION: New right lower lobe consolidation concerning for pneumonia/pneumonitis. Imaging follow-up in 4-6 weeks is suggested to ensure improvement and/or resolution. Conclusions/Impression: Stage III DANY in the setting of hypovolemia -No NSAIDs -Continue IVF Hyponatremia -Continue IVF with NS Hypokalemia -Replete as ordered HTN -Continue Metoprolol Hypoalbuminemia -Protein supplementation prn CAP -Continue Abx Hospitalist and ER notes reviewed Thank you kindly for the consultation
[2024-05-02 01:46] LABS: Specific Gravity 1.017 (1.005-1.030); Sqamous Epithelial <5 /HPF (None Seen); Urine Bacteria <20 /HPF (<20); Urine Bilirubin NEGATIVE (Negative); Urine Blood Trace (Negative); Urine Clarity Extremely Turbid (Clear); Urine Color Light-Yellow (Yellow); Urine Culture Reflex Order NOT NEEDED; Urine Glucose NEGATIVE (Negative); Urine Ketones NEGATIVE (Negative); Urine Microscopic Reflex YN ORDER UMIC; Urine Mucus Slight /HPF (None Seen); Urine Nitrite NEGATIVE (Negative); Urine Protein 1+ (Negative); Urine RBC <5 /HPF (None Seen); Urine Urobilinogen Normal (Normal); Urine WBC <5 /HPF (<5); Urine pH 5.5 (5.0-7.0)
[2024-05-02 05:46] LABS: Absolute Monocytes 0.1 K/uL (0.1-1.3); Absolute Neutrophil 9.3 K/uL (1.8-8.0); Basophils % 0.4 % (0-1.3); Eosinophils % 0.1 % (0-4.4); Hemoglobin 11.4 g/dL (12.0-15.0); Lymphocytes % 9.3 % (15.3-44.8); MCH 33.8 pg (27.0-35.0); MCHC 34.4 g/dL (32.0-36.0); MCV 98.3 fL (80-100); MPV 8.7 fL (7.6-11.3); Monocytes % 1.3 % (3.3-12.3); Neutrophils % 88.9 % (41.7-73.7); Platelets 208 thou/uL (152-406); RBC Red Blood Cell Count 3.36 M/uL (3.86-4.86); Red Cell Distribution Width 14.3 % (12.1-15.2)
[2024-05-02] MEDS: MORPHINE 2 MG/ML SYR IV ONE (05:53)
[2024-05-02 06:06] LABS: Anion Gap 10.7 mEq/L (5.0-15.0); Potassium 2.7 mEq/L (3.5-5.1)
[2024-05-02] MEDS: KCL 20 MEQ/100 mL IVPB 20 MEQ/100 ML BAG IV SCH (06:31)
--- NOTE | 2024-05-02 07:27 | ECHO ---
HEIGHT: 5 ft 4 in WEIGHT: 128 lb 6.4 oz DATE OF STUDY: 05/01/[address]: Brenden Gomez MD 2-DIMENSIONAL: YES M.MODE: YES DOPPLER: YES COLOR FLOW: YES TDS: NO PORTABLE: YES DEFINITY: NO BUBBLE STUDY: NO DIAGNOSIS: ATRIAL FIBRILLATION CARDIAC HISTORY: CATHERIZATION: SURGERY: PROSTHETIC VALVE: PACEMAKER: MEASUREMENTS (cm) DIASTOLIC (NORMALS) SYSTOLIC (NORMALS) IVSd 1.0 (0.6-1.2) LA Diam 3.2 (1.9-4.0) LVEF 50% LVIDd 3.4 (3.5-5.7) LVIDs 2.6 (2.0-3.5) %FS 25% LVPWd 1.1 (0.6-1.2) Ao Diam 3.0 (2.0-3.7) 2 DIMENSIONAL ASSESSMENT: RIGHT ATRIUM: NORMAL LEFT ATRIUM: MILDLY DILATED RIGHT VENTRICLE: NORMAL LEFT VENTRICLE: BASAL SEPTAL HYPERTROPHY TRICUSPID VALVE: MILD TRICUSPID REGURGITATION MITRAL VALVE: NORMAL PULMONIC VALVE: NORMAL AORTIC VALVE: MILD CALCIFICATION PERICARDIAL EFFUSION: NONE AORTIC ROOT: NORMAL LEFT VENTRICULAR WALL MOTION: MILD GLOBAL HYPOKINESIS WITH APICAL, APICAL SEPTUM, DISTAL ANTERIOR WALL AKINESIS. DOPPLER/COLOR FLOW: GRADE I DIASTOLIC DYSFUNCTION. COMMENTS: 1. MILDY REDUCED LEFT VENTRICULAR SYSTOLIC FUNCTION. LEFT VENTRICULAR EJECTION FRACTION 50%. MILD GLOBAL HYPOKINESIS WITH APICAL, APICAL SEPTUM, DISTAL ANTERIOR WALL AKINESIS. 2. GRADE I DIASTOLIC DYSFUNCTION. 3. NORMAL FILLING PRESSURE. RIGHT ATRIAL PRESSURE 0-5 mmHg. TECHNOLOGIST: CASH HOGAN
[2024-05-02] MEDS: predniSONE 1 MG TAB PO SCH (07:50)
[2024-05-02] MEDS: CYCLOSPORINE OPTH SCH ×2 (07:51)
[2024-05-02] MEDS: CEFTRIAXONE 2,000 MG in NA CHLORIDE 0.9% 50 ML IVPB SCH (07:52)
[2024-05-02 08:45] LABS: Band Neutrophils 3 % (0-1); Blood Morphology Comment NOT SEEN (NOT SEEN); Differential Total Cells Count 100; Dohle Bodies PRESENT; Lymphocytes 11 % (15-42); Metamyelocytes 5 % (0-0); Monocytes 4 % (0-10); Myelocytes 1 % (0-0); Nucleated Red Blood Cells 1 /100WBC; Platelet Estimate ADEQ; Segmented Neutrophils 72 % (40-80); Toxic Granulation 2+
[2024-05-02] MEDS ORDERED: CEFTRIAXONE 1,000 MG in NA CHLORIDE 0.9% 50 ML IVPB SCH (09:00)
--- NOTE | 2024-05-02 12:11 | P.PN ---
Subjective Date of Service: 05/02/24 Chief Complaint: Afib Subjective: Worsening She is complaining of productive cough and dyspnea at rest, but unable to expectorate, scheduled for DC cardioversion today. Patient is urinating herself but complaining of pelvic pain, bedside ultrasound revealed regular urine over 500 mL Review of Systems Other: Consitutional; fever(-), chills (-), rigor(-), night sweat(-), unintentional weight loss(-), malaise (-) HEENT; diplopia (-), rhinorrhea (-), epistaxis (-), otorrhea (-), otalgia (-) Respiratory; shortness of breath (-), wheezing (-), cough (+), sputum (+), pleuritic chest pain (-) Cardiovascular; chest pain (-), peripheral edema (-), paroxysmal nocturnal dyspnea (-), orthopnea (-) Gastrointestinal; nausea (-), vomiting (-), abdominal pain (-), diarrhea (-), constipation (-), melena (-), hematochezia (-) Genitourinary; urinary frequency (-), dysuria (-), urgency (-), flank pain (-), gross hematuria (-), incontinence (+) Skin; rash (-), pruritus (-) 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 General: Emaciated, acutely ill looking, in mild respiratory distress,. HEENT: Normocephalic, atraumatic, nonicteric sclera, nonanemic conjunctive. Neck: Supple, without JV D or goiter or thyroid mass. Respiratory: Labored breathing,, coarse breath sound bilaterally with rhonchi but no crackles or wheezing,. Cardiovascular: Irregularly and irregular heartbeat, no murmur no gallop. Gastrointestinal: Normal bowel sounds, nondistended, nontender, No ascites, , No masses, no hepatosplenomegaly. Extremities : No clubbing, No peripheral edema,. Integumentary: No rashes, petechia, suspected lesions. Lymphatics: No axilla or cervical lymphadenopathy. Neurology; alert awake oriented x3, no focal neurologic deficit, normal affection . mood and behavior. - Studies Microbiology Data (last 24 hrs): 04/30/24 18:36 Blood - Blood Blood Culture Gram Stain - Final 04/30/24 18:36 Blood - Blood Anaerobic Blood Culture - Final 04/30/24 18:42 Blood - Blood Blood Culture Gram Stain - Final 04/30/24 18:42 Blood - Blood Anaerobic Blood Culture - Final Assessment And Plan - Plan This is 84 years old female patient with complex medical problem including myasthenia gravis on immunosuppressant, hypertension, questionable pulmonary bronchiectasis, atrial fibrillation who presented to emergency room for shortness of breath and palpitation and chest pain for 3 days and found to have pneumonia, A-fib with rapid ventricular response and DANY and admitted in MICU #1 acute hypoxic respiratory failure related to #2 Worsening respiratory status due to poor expectoration I will order aggressive pulmonary toilet, scheduled bronchodilator, continue nasal cannula to keep saturation pO2 over 90%, I will obtain follow-up chest x-ray tomorrow morning. 2. Community-acquired pneumonia by Streptococcus pneumonia and influenza A Her chest x-ray personally reviewed lobar pneumonia in the right lower lobe, No risk of MDR, I will modify the antibiotics to ceftriaxone 2 g daily and azithromycin for #2, test positive for influenza A, started on oseltamivir 3. Streptococcal pneumonia bacteremia with sepsis related to #1 Blood culture positive 2 out of 4 culture result reviewed, alphahemolytic Streptococcus, consistent with pneumococcus , continue empiric antibiotics with ceftriaxone and azithromycin, follow-up on blood culture sensitivity and identification, hemodynamically stable, I will request a repeat blood culture tomorrow morning. 4. A-fib with AVR Heart rate at target on diltiazem drip, cardiology is planning on DC cardioversion but I do not think patient is medically stable for any procedure at the moment , metoprolol added, full anticoagulation with heparin, a transthoracic echocardiogram pending #5 DANY secondary to #2 and #3 and dehydration Seems to responding to fluid challenge, creatinine continued trending down to 1.3, I will discontinue the IV fluid for #1, Monitor input and output, renal function test daily #6 elevated troponin without acute coronary syndrome associated with #2, 3 and 4 Elevated troponin plateaued, no clinical sign of acute coronary syndrome DVT prophylaxis; heparin infusion Disposition; patient continues to need ICU care, high risk of clinical deterioration given old age and multiple comorbidities listed above
--- NOTE | 2024-05-02 12:30 | P.PN ---
Subjective Date of Service: 05/02/24 Chief Complaint: Afib Subjective: No new changes, No C/O voiced, Tolerating diet, Ambulating, Improving Review of Systems 10-point ROS is otherwise unremarkable Physical Examination - Vital Signs Temperature: 98.7 F Blood Pressure: 148/62 Pulse: 82 Respirations: 23 Pulse Ox (%): 91 - Physical Exam General: Alert, In no apparent distress HEENT: Atraumatic, PERRLA, EOMI Neck: Supple, JVD not distended Respiratory: Clear to auscultation bilaterally, Normal air movement Cardiovascular: Regular rate/rhythm, Normal S1 S2 Gastrointestinal: Normal bowel sounds, No tenderness Musculoskeletal: No tenderness Integumentary: No rashes Neurological: Normal speech, Normal tone, Normal affect Lymphatics: No axilla or inguinal lymphadenopathy Other Physical/Emotional Findings: - Physical Exam. General: Emaciated, acutely ill looking, in mild respiratory distress,. HEENT: Normocephalic, atraumatic, nonicteric sclera, nonanemic conjunctive. Neck: Supple, without JVD or goiter or thyroid mass. Respiratory: Labored breathing,, coarse breath sound bilaterally with rhonchi but no crackles or wheezing,. Cardiovascular: Irregularly and irregular heartbeat, no murmur no gallop. Gastrointestinal: Normal bowel sounds, nondistended, nontender, No ascites, , No masses, no hepatosplenomegaly. Extremities : No clubbing, No peripheral edema,. Integumentary: No rashes, petechia, suspected lesions. Lymphatics: No axilla or cervical lymphadenopathy. Neurology; alert awake oriented x3, no focal neurologic deficit, normal affection . mood and behavior. - Studies Microbiology Data (last 24 hrs): 04/30/24 18:36 Blood - Blood Blood Culture Gram Stain - Final 04/30/24 18:36 Blood - Blood Anaerobic Blood Culture - Final 04/30/24 18:42 Blood - Blood Blood Culture Gram Stain - Final 04/30/24 18:42 Blood - Blood Anaerobic Blood Culture - Final Medications List Reviewed: Yes Assessment And Plan - Current Problems (Diagnosis) (1) Atrial fibrillation Current Visit: Yes Status: Acute Plan: per patient she was told she had AF in the past, start sotalol 80 mg po BID continue lopressor 25 mg po BID Heparin drip for anticoagulation NPO for possible LUANNE DCCV (2) NSTEMI (non-ST elevated myocardial infarction) Current Visit: Yes Status: Acute Plan: patient troponin mild elevated, denies having chest pain, this can be related to DANY and AF continue to trend troponin until peak and down trending heparin drip echo shown mild reduced LV systolic function with apical and distal anterior gerber akinesis Patient will need coronary angiogram but also patient presented with DANY, kidney function is improving, if repeated kidney function in am is better then will do coronary angiogram in am. (3) DANY (acute kidney injury) Current Visit: Yes Status: Acute Plan: not sure about etiology, patient with no signs of volume overload, her elevated NT-ProBNP can be secondary to acute kidney failure, will get echo and continue to monitor. Echo shows normal filling pressure.
[2024-05-02] MEDS: POTASSIUM CL SA 10 MEQ TAB PO ONE (12:35)
[2024-05-02] MEDS: IPRATROPIUM BROM 0.5MG/2.5ML NEB SCH (13:51)
[2024-05-02] MEDS: ALBUTEROL 2.5 MG/3 ML NEB SOL NEB SCH (13:51)
[2024-05-02] MEDS: OSELTAMIVIR 30 MG CAP PO SCH (14:16)
[2024-05-02] MEDS: SOTALOL HCL 80 MG TAB PO SCH (14:16)
[2024-05-02] MEDS: LEVALBUTEROL 1.25 MG/3 ML NEB NEB SCH (19:10)
--- NOTE | 2024-05-02 20:37 | P.PN ---
Date of Service: 05/02/24 Vital Signs Temp Pulse Resp BP Pulse Ox 98.7 F 89 25 H 146/72 H 97 05/02/24 12:30 05/02/24 19:00 05/02/24 19:00 05/02/24 19:00 05/02/24 19:00 Medications Acetaminophen (Acetaminophen 325 Mg Tablet) 650 mg PO Q4HP PRN PRN Reason: Pain scale 2-4 (Mild) Aspirin (Aspirin Ec 81 Mg Tab) 81 mg PO DAILY [facility] Last Admin: 05/02/24 07:51 Dose: 81 mg Atorvastatin Calcium (Atorvastatin 40 Mg Tab) 40 mg PO BEDTIME [facility] Last Admin: 05/02/24 20:11 Dose: 40 mg Benzonatate (Benzonatate 100 Mg Cap) 100 mg PO TID PRN PRN Reason: COUGH Guaifenesin (Guaifenesin 600 Mg Sa Tab) 600 mg PO BID [facility] Last Admin: 05/02/24 20:11 Dose: 600 mg Home Med (Cyclosporine [Restasis]) 1 drop OPTH DAILY [facility] Last Admin: 05/02/24 07:51 Dose: Not Given Home Med (Cyclosporine [Vevye]) 1 drop OPTH DAILY [facility] Last Admin: 05/02/24 07:51 Dose: Not Given Diltiazem HCl 125 mg/ Sodium (Chloride) 125 mls @ 5 mls/hr IV TITR [facility]; Protocol Last Titration: 05/02/24 11:00 Dose: 0 mg/hr, 0 mls/hr Azithromycin 500 mg/ Sodium (Chloride) 250 mls @ 250 mls/hr IVPB DAILY [facility]; Pro tocol Stop: 05/03/24 09:59 Last Admin: 05/02/24 07:51 Dose: 250 mls Heparin Sodium/Dextrose (Heparin Drip 25,000 Units/5oo Ml Premix) 25,000 unit in 500 mls @ 0 mls/hr IV UD [facility]; Protocol Last Admin: 05/01/24 11:20 Dose: 500 mls Ceftriaxone Sodium 2,000 mg/ (Sodium Chloride) 50 mls @ 100 mls/hr IVPB DAILY [facility]; Protocol Last Admin: 05/02/24 07:52 Dose: 50 mls Ipratropium [place] (Ipratropium Brom 0.5mg/2.5ml) 0.5 mg NEB [id number] [facility] Last Admin: 05/02/24 19:10 Dose: 0.5 mg Levalbuterol HCl (Levalbuterol 1.25 Mg/3 Ml Neb) 1.25 mg NEB [id number] [facility] Last Admin: 05/02/24 19:10 Dose: 1.25 mg Metoprolol Tartrate (Metoprolol Tar 25 Mg Tab) 25 mg PO BID 6AM 6PM [facility] Last Admin: 05/02/24 16:57 Dose: 25 mg Mupirocin (Mupirocin Nasal 2 Appl/1 Gm Tube) 1 appl EVELINA BID [facility] Stop: 05/05/24 21:01 Last Admin: 05/02/24 20:11 Dose: 1 appl Ondansetron HCl (Ondansetron 4 Mg/2 Ml Vial) 4 mg IV Q6HP PRN PRN Reason: NAUSEA / VOMITING Oseltamivir Phosphate (Oseltamivir 30 Mg Cap) 30 mg PO DAILY [facility] Stop: 05/07/24 14:15 Last Admin: 05/02/24 14:16 Dose: 30 mg Prednisone (Prednisone 1 Mg Tab) 2 mg PO DAILY [facility] Last Admin: 05/02/24 07:50 Dose: 2 mg Pyridostigmine [place] (Pyridostigmine 60 Mg Tablet) 60 mg PO TID [facility] Last Admin: 05/02/24 20:11 Dose: 60 mg Sotalol HCl (Sotalol Hcl 80 Mg Tab) 80 mg PO BID 6AM 6PM [facility] Last Admin: 05/02/24 16:57 Dose: 80 mg Microbiology Results 04/30/24 18:36 Blood - Blood Aerobic Blood Culture - Preliminary 04/30/24 18:36 Blood - Blood Blood Culture Gram Stain - Final 04/30/24 18:36 Blood - Blood Anaerobic Blood Culture - Final 04/30/24 18:42 Blood - Blood Aerobic Blood Culture - Preliminary 04/30/24 18:42 Blood - Blood Blood Culture Gram Stain - Final 04/30/24 18:42 Blood - Blood Anaerobic Blood Culture - Final Assessment/ Plan: Nephrology No dyspnea No chest pain Reports urinary retention sp cath early this morning No acute events overnight Vitals, medications, blood work and imaging reviewed in the chart General: In no apparent distress, Oriented x3, Cooperative HEENT: Atraumatic Neck: Supple Respiratory: Normal air movement Cardiovascular: No edema, Normal S1 S2 Gastrointestinal: Soft and benign, Non-distended Musculoskeletal: No clubbing, No contractures Integumentary: No rashes, No cyanosis Neurological: Normal speech PW Light Blood work reviewed in the chart. Imagings Data: EXAM: Chest Single View HISTORY: chest nely COMPARISON: 07/11/2016 FINDINGS: LUNGS/PLEURA: New consolidative airspace disease present the right lower lobe. MEDIASTINUM: The mediastinal silhouette is within normal limits. CARDIAC: Mild cardiomegaly UPPER ABDOMEN: No significant abnormality. BONES: No acute abnormality. LINES/TUBES/OTHER: N/A IMPRESSION: New right lower lobe consolidation concerning for pneumonia/pneumonitis. Imaging follow-up in 4-6 weeks is suggested to ensure improvement and/or resolution. Conclusions/Impression: Stage III DANY in the setting of hypovolemia Proteinuria -No NSAIDs -Discontinue IVF Hyponatremia -Discontinue IVF Hypokalemia -Replete as ordered HTN -Continue Metoprolol Hypoalbuminemia -Protein supplementation prn Anemia in chronic illness -Monitor H&H Urinary Retention -Bladder scan prn -Straight cath prn Persistent Afib -Continue Sotalol -Follow up with cardiology CAP -Continue Abx Hospitalist note reviewed 35 min patient care
[2024-05-03 06:27] LABS: Absolute Lymphocytes (CBC) 1.3 K/uL (0.7-4.9); Absolute Monocytes 0.4 K/uL (0.1-1.3); Absolute Neutrophil 11.9 K/uL (1.8-8.0); Basophils % 0.2 % (0-1.3); Eosinophils % 0.1 % (0-4.4); Hematocrit 31.7 % (36.0-45.0); Hemoglobin 10.7 g/dL (12.0-15.0); Lymphocytes % 9.5 % (15.3-44.8); MCHC 33.9 g/dL (32.0-36.0); MCV 97.4 fL (80-100); MPV 9.1 fL (7.6-11.3); Monocytes % 3.2 % (3.3-12.3); Nucleated Red Blood Cells % 0.1 % (0-0); Platelets 182 thou/uL (152-406); RBC Red Blood Cell Count 3.25 M/uL (3.86-4.86); Red Cell Distribution Width 14.1 % (12.1-15.2)
[2024-05-03 07:19] LABS: Anion Gap 14.4 mEq/L (5.0-15.0); Potassium 3.4 mEq/L (3.5-5.1)
--- NOTE | 2024-05-03 07:23 | RAD REPORT ---
Procedure: Chest Single View HISTORY: Cough COMPARISON: April 22, 2024 FINDINGS: Mild worsening in right basilar opacities. Development of mild bilateral interstitial opacities. No significant pleural effusion noted. The heart is mildly enlarged. IMPRESSION: Mild worsening in right basilar opacities which represent pneumonia. Development of mild bilateral interstitial lung opacities may indicate mild interstitial pulmonary ed brett.
[2024-05-03] MEDS: POTASSIUM CL SA 10 MEQ TAB PO ONE (08:18)
[2024-05-03] MEDS: CEFTRIAXONE 2,000 MG in NA CHLORIDE 0.9% 100 ML IV SCH (08:19)
[2024-05-03 09:02] LABS: Atypical Lymphocytes 1 %; Band Neutrophils 3 % (0-1); Blood Morphology Comment NOT SEEN (NOT SEEN); Differential Total Cells Count 100; Dohle Bodies PRESENT; Eosinophils 1 % (0-3); Lymphocytes 10 % (15-42); Metamyelocytes 5 % (0-0); Monocytes 3 % (0-10); Myelocytes 1 % (0-0); Platelet Estimate ADEQ; Segmented Neutrophils 76 % (40-80); Toxic Granulation 1+
--- NOTE | 2024-05-03 11:04 | P.PN ---
Subjective Date of Service: 05/03/24 Chief Complaint: Afib Subjective: Improving Patient stated she is feeling better after expectoration, but still have a productive cough and shortness of breath on minimal exertion, patient ended up insertion of indwelling Busby catheter for urinary retention. Patient still in atrial fibrillation but ventricular rate controlled off Cardizem Review of Systems Other: Consitutional; fever(-), chills (-), rigor(-), night sweat(-), unintentional weight loss(-), malaise (-) HEENT; diplopia (-), rhinorrhea (-), epistaxis (-), otorrhea (-), otalgia (-) Respiratory; shortness of breath (+), wheezing (-), cough (+), sputum (+), pleuritic chest pain (-) Cardiovascular; chest pain (-), peripheral edema (-), paroxysmal nocturnal dyspnea (-), orthopnea (-) Gastrointestinal; nausea (-), vomiting (-), abdominal pain (-), diarrhea (-), constipation (-), melena (-), hematochezia (-) Genitourinary; urinary frequency (-), dysuria (-), urgency (-), flank pain (-), gross hematuria (-), incontinence (-) Skin; rash (-), pruritus (-) 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 General: Emaciated, no longer in acute distress,. HEENT: Normocephalic, atraumatic, nonicteric sclera, nonanemic conjunctive. Neck: Supple, without JVD or goiter or thyroid mass. Respiratory: Normal respiratory effort,, coarse breath sound bilaterally with rhonchi but no crackles or wheezing,. Cardiovascular: Irregularly and irregular heartbeat, no murmur no gallop. Gastrointestinal: Normal bowel sounds, nondistended, nontender, No ascites, , No masses, no hepatosplenomegaly. Extremities : No clubbing, No peripheral edema,. Integumentary: No rashes, petechia, suspected lesions. Lymphatics: No axilla or cervical lymphadenopathy. Neurology; alert awake oriented x3, no focal neurologic deficit, normal affection . mood and behavior. - Studies Microbiology Data (last 24 hrs): 04/30/24 18:36 Blood - Blood Aerobic Blood Culture - Final Strep Pneumoniae 04/30/24 18:36 Blood - Blood Blood Culture Gram Stain - Final 04/30/24 18:36 Blood - Blood Anaerobic Blood Culture - Final 04/30/24 18:42 Blood - Blood Aerobic Blood Culture - Final Strep Pneumoniae 04/30/24 18:42 Blood - Blood Blood Culture Gram Stain - Final 04/30/24 18:42 Blood - Blood Anaerobic Blood Culture - Final Medications List Reviewed: Yes Assessment And Plan - Plan This is 84 years old female patient with complex medical problem including myasthenia gravis on immunosuppressant, hypertension, questionable pulmonary bronchiectasis, atrial fibrillation who presented to emergency room for shortness of breath and palpitation and chest pain for 3 days and found to have pneumonia, A-fib with rapid ventricular response and DANY and admitted in MICU #1 acute hypoxic respiratory failure related to #2 Improving after pulmonary toilet and oral suction scheduled bronchodilator, continue nasal cannula to keep saturation pO2 over 90%, follow-up chest x-ray personally reviewed, mild pulmonary congestion and stable right lower lobe pneumonia. 2. Community-acquired pneumonia by Streptococcus pneumonia and influenza A Her chest x-ray personally reviewed lobar pneumonia in the right lower lobe, No risk of MDR, I will continue ceftriaxone 2 g daily and azithromycin for #2, test positive for influenza A, on oseltamivir 3. Streptococcal pneumonia bacteremia with sepsis related to #2 Blood culture positive 2 out of 4 culture identification and sensitivity reviewed , continue definitive antibiotics with ceftriaxone , follow-up on blood culture done today, patient need a 7-day IV antibiotics at least. 4. A-fib with AVR Heart rate at target on oral metoprolol off diltiazem drip, cardiology is planning on DC cardioversion full anticoagulation with heparin, a transthoracic echocardiogram pending #5 DANY secondary to #2 and #3 and dehydration Resolved #6 elevated troponin without acute coronary syndrome associated with #2, 3 and 4 Elevated troponin plateaued, no clinical sign of acute coronary syndrome #7 acute urinary retention Will give Busby catheter in for now #8 anemia of infection/inflammation with dilutional anemia Hemoglobin stable around 10-11, no clinical bleeding on heparin infusion, no transfusion indicated, I will obtain a follow-up CBC tomorrow morning DVT prophylaxis; heparin infusion Disposition; possible downgrade in in the next couple of days if patient continues to improve, high risk of clinical deterioration given old age and multiple comorbidities listed above
--- NOTE | 2024-05-03 11:49 | P.PN ---
Nephrology Pt seen in the ICU, per reports, LUANNE/cardioversion was not needed as pt underwent spont conversion, no acute CP or dyspnea voiced. On RA when seen Vitals, medications, blood work and imaging reviewed in the chart General: In no apparent distress, HEENT: Atraumatic, sclera anicteric, not on O2 Neck: Supple Respiratory: Normal air movement, mildly reduced at bases, non tachypnec Cardiovascular: Tachy, mild, regular mostly Gastrointestinal: Soft, Non-distended and NT Musculoskeletal: No sig edema, shins are NT Integumentary: No rashes Neurological: Normal speech, awake, alert Blood work reviewed in the chart. Imagings Data: Reviewed in the EMR Conclusions/Impression: Stage III ARF per CALLIE def POA 2nd to pre-renal azotemia -Cr level has downward trended nicely, off IVF now -Risk for ISABEL should be lower given renal recovery, will hold off on any additional vol bolus at the time of contrast exposure given CXR findings, will dose Lasix 20 mg IV once post cath for urinary excretion NSTEMI, Afib unspecified. Chronic diastolic CHF -Management per Cardiology, will f/u reccs and findings including LVEDP if reported Pneumonia, with Influenza A, Strep Pneumoniae sepsis/bacteremia -Cont Abx and management per IM Hypokalemia -Will replete, will monitor Mg levels
[2024-05-03] MEDS: METOPROLOL TAR 25 MG TAB PO ONE (12:58)
--- NOTE | 2024-05-03 13:03 | P.PN ---
Subjective Date of Service: 05/03/24 Chief Complaint: Afib Subjective: No new changes, No C/O voiced, Tolerating diet, Ambulating, Improving Review of Systems 10-point ROS is otherwise unremarkable Physical Examination - Vital Signs Temperature: 98.4 F Blood Pressure: 151/78 Pulse: 104 Respirations: 22 Pulse Ox (%): 96 - Physical Exam General: Alert, In no apparent distress HEENT: Atraumatic, PERRLA, EOMI Neck: Supple, JVD not distended Respiratory: Clear to auscultation bilaterally, Normal air movement Cardiovascular: Regular rate/rhythm, Normal S1 S2 Gastrointestinal: Normal bowel sounds, No tenderness Musculoskeletal: No tenderness Integumentary: No rashes Neurological: Normal speech, Normal tone, Normal affect Lymphatics: No axilla or inguinal lymphadenopathy Other Physical/Emotional Findings: - Physical Exam. General: Emaciated, no longer in acute distress,. HEENT: Normocephalic, atraumatic, nonicteric sclera, nonanemic conjunctive. Neck: Supple, without JVD or goiter or thyroid mass. Respiratory: Normal respiratory effort,, coarse breath sound bilaterally with rhonchi but no crackles or wheezing,. Cardiovascular: Irregularly and irregular heartbeat, no murmur no gallop. Gastrointestinal: Normal bowel sounds, nondistended, nontender, No ascites, , No masses, no hepatosplenomegaly. Extremities : No clubbing, No peripheral edema,. Integumentary: No rashes, petechia, suspected lesions. Lymphatics: No axilla or cervical lymphadenopathy. Neurology; alert awake oriented x3, no focal neurologic deficit, normal affection . mood and behavior. - Studies Microbiology Data (last 24 hrs): 04/30/24 18:36 Blood - Blood Aerobic Blood Culture - Final Strep Pneumoniae 04/30/24 18:36 Blood - Blood Blood Culture Gram Stain - Final 04/30/24 18:36 Blood - Blood Anaerobic Blood Culture - Final 04/30/24 18:42 Blood - Blood Aerobic Blood Culture - Final Strep Pneumoniae 04/30/24 18:42 Blood - Blood Blood Culture Gram Stain - Final 04/30/24 18:42 Blood - Blood Anaerobic Blood Culture - Final Medications List Reviewed: Yes Assessment And Plan - Current Problems (Diagnosis) (1) Atrial fibrillation Current Visit: Yes Status: Acute Plan: per patient she was told she had AF in the past, patient converted into sinus rhythm with medications continue sotalol 80 mg po BID increase lopressor to 50 mg po BID Heparin drip for anticoagulation (2) NSTEMI (non-ST elevated myocardial infarction) Current Visit: Yes Status: Acute Plan: patient troponin mild elevated, denies having chest pain, this can be related to DANY and AF continue to trend troponin until peak and down trending heparin drip echo shown mild reduced LV systolic function with apical and distal anterior gerber akinesis NPO for coronary angiogram (3) DANY (acute kidney injury) Current Visit: Yes Status: Acute Plan: not sure about etiology, patient with no signs of volume overload, her elevated NT-ProBNP can be secondary to acute kidney failure. Echo shows normal filling pressure.
[2024-05-03] MEDS ORDERED: LIDOCAINE 1% 20 ML MDV ONE (16:40)
[2024-05-03] MEDS ORDERED: HEPA 1000U/500MLS 2,000 UNIT/1,000 ML BAG IV ONE (16:40)
[2024-05-03] MEDS ORDERED: HEPARIN 10,000 UNIT/10 ML VIAL IV ONE (16:40)
[2024-05-03] MEDS ORDERED: MIDAZOLAM HCL 2 MG/2 ML INJ ONE (16:40)
[2024-05-03] MEDS ORDERED: HEPARIN 5000 UNIT/ML 1 ML VIAL ONE (16:41)
[2024-05-03] MEDS ORDERED: CLOPIDOGREL 75 MG TABLET ONE (16:41)
[2024-05-03] MEDS ORDERED: TICAGRELOR 90 MG TABLET PO ONE (16:41)
[2024-05-03] MEDS ORDERED: ASPIRIN 325 MG TAB ONE (16:41)
[2024-05-03] MEDS ORDERED: FENTANYL CITR 100 MCG/2 ML ONE (16:42)
[2024-05-03] MEDS ORDERED: ATROPINE SULF 1 MG/10 ML SYR IV ONE (16:46)
[2024-05-03] MEDS: FUROSEMIDE 20 MG TABLET PO ONE (17:41)
[2024-05-03] MEDS: METOPROLOL TAR 50 MG TAB PO SCH (20:10)
--- NOTE | 2024-05-04 01:26 | OP ---
Date of Procedure: 05/03/2024 Surgeon: Brenden Gomez Procedure Performed: Selective coronary angiogram. Indication For Procedure: Non-ST elevation AR. Complications: None. Estimated Blood Loss: Less than 50 cc. Access: Right radial, closed by TR band. Sedation Time: 20 minutes with 1 of Versed and 25 fentanyl. Description Of Procedure: After risks, benefits, and alternatives were explained to the patient, the patient agreed to proceed with the procedure and signed informed consent. The patient was brought b k to the laborer mine, prepped and draped in sterile fashion. Time-out was performed. Sedation was ad ministered. Next, the right radial access was obtained using ultrasound-guided micropuncture technBG Medicine ue. Vilas 4 catheter was advanced over a J-wire to the aortic root. Selective angiogram was done us ing same catheter. At the end of procedure, catheter was removed over a J-wire. Sheath was removed. TR band was applied. Hemostasis was achieved. The patient was moved back to recovery in stable co ndition. Findings: 1. Left main normal. 2. LAD, proximal mild luminal irregularities with mid 40% disease at the origin of large diagonal 2, then continue as mild luminal irregularities. 3. Diagonal 1, small. 4. Diagonal 2, large, almost weaker than the LAD with mild luminal irregularities. 5. Left circ, mild luminal irregularities. 6. RCA, large dominant with mild luminal irregularities. Assessment And Plan: Mild to moderate mid LAD disease. Plan is to continue medical management. JERRY/DILCIA Voice ID: [id number] Report ID: [id number]
[2024-05-04] MEDS: ACETAMINOPHEN 325 MG TABLET PO PRN (05:27)
[2024-05-04 05:59] LABS: Absolute Lymphocytes (CBC) 1.4 K/uL (0.7-4.9); Absolute Monocytes 0.6 K/uL (0.1-1.3); Absolute Neutrophil 11.7 K/uL (1.8-8.0); Basophils % 0.3 % (0-1.3); Eosinophils % 0.3 % (0-4.4); Hematocrit 30.5 % (36.0-45.0); Hemoglobin 10.4 g/dL (12.0-15.0); Lymphocytes % 10.1 % (15.3-44.8); MCH 33.5 pg (27.0-35.0); MCHC 34.1 g/dL (32.0-36.0); MCV 98.1 fL (80-100); MPV 8.3 fL (7.6-11.3); Monocytes % 4.4 % (3.3-12.3); Neutrophils % 84.9 % (41.7-73.7); Nucleated Red Blood Cells % 0.1 % (0-0); Platelets 218 thou/uL (152-406); RBC Red Blood Cell Count 3.11 M/uL (3.86-4.86); Red Cell Distribution Width 14.1 % (12.1-15.2)
[2024-05-04 06:15] LABS: Anion Gap 9.3 mEq/L (5.0-15.0); Potassium 3.3 mEq/L (3.5-5.1)
[2024-05-04] MEDS: OSELTAMIVIR 75 MG CAP PO ONE (08:20)
[2024-05-04] MEDS ORDERED: OSELTAMIVIR 30 MG CAP PO ONE (09:00)
--- NOTE | 2024-05-04 12:14 | P.PN ---
Subjective Date of Service: 05/04/24 Chief Complaint: Afib Subjective: Improving Patient states that she continued to feel better, less cough, less shortness of breath, she underwent a coronary angiogram yesterday which shows nonobstructive coronary artery disease. Review of Systems Other: Consitutional; fever(-), chills (-), rigor(-), night sweat(-), unintentional weight loss(-), malaise (-) HEENT; diplopia (-), rhinorrhea (-), epistaxis (-), otorrhea (-), otalgia (-) Respiratory; shortness of breath (-), wheezing (-), cough (+), sputum (+), pleuritic chest pain (-) Cardiovascular; chest pain (-), peripheral edema (-), paroxysmal nocturnal dyspnea (-), orthopnea (-) Gastrointestinal; nausea (-), vomiting (-), abdominal pain (-), diarrhea (-), constipation (-), melena (-), hematochezia (-) Genitourinary; urinary frequency (-), dysuria (-), urgency (-), flank pain (-), gross hematuria (-), incontinence (-) Skin; rash (-), pruritus (-) 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 General: Emaciated, no longer in acute distress,. HEENT: Normocephalic, atraumatic, nonicteric sclera, nonanemic conjunctive. Neck: Supple, without JVD or goiter or thyroid mass. Respiratory: Normal respiratory effort,, less coarse breath sound bilaterally with rhonchi but no crackles or wheezing,. Cardiovascular: Irregularly and irregular heartbeat, no murmur no gallop. Gastrointestinal: Normal bowel sounds, nondistended, nontender, No ascites, , No masses, no hepatosplenomegaly. Extremities : No clubbing, No peripheral edema,. Integumentary: No rashes, petechia, suspected lesions. Lymphatics: No axilla or cervical lymphadenopathy. Neurology; alert awake oriented x3, no focal neurologic deficit, normal affection . mood and behavior. - Studies Microbiology Data (last 24 hrs): 04/30/24 18:36 Blood - Blood Aerobic Blood Culture - Final Strep Pneumoniae 04/30/24 18:36 Blood - Blood Blood Culture Gram Stain - Final 04/30/24 18:36 Blood - Blood Anaerobic Blood Culture - Final 04/30/24 18:42 Blood - Blood Aerobic Blood Culture - Final Strep Pneumoniae 04/30/24 18:42 Blood - Blood Blood Culture Gram Stain - Final 04/30/24 18:42 Blood - Blood Anaerobic Blood Culture - Final Medications List Reviewed: Yes Assessment And Plan - Plan This is 84 years old female patient with complex medical problem including myasthenia gravis on immunosuppressant, hypertension, questionable pulmonary bronchiectasis, atrial fibrillation who presented to emergency room for shortness of breath and palpitation and chest pain for 3 days and found to have pneumonia, A-fib with rapid ventricular response and DANY and admitted in MICU #1 acute hypoxic respiratory failure related to #2 Improving will continue scheduled bronchodilator, continue nasal cannula to keep saturation pO2 over 90%, follow-up mild pulmonary congestion and stable right lower lobe pneumonia. 2. Community-acquired pneumonia by Streptococcus pneumonia and influenza A Resolving, her chest x-ray on admission lobar pneumonia in the right lower lobe, No risk of MDR, afebrile, leukopenia resolved, mild leukocytosis now, I will continue ceftriaxone 2 g daily and azithromycin for #2, test positive for influenza A, on oseltamivir 3. Streptococcal pneumonia bacteremia with sepsis related to #2 Improving, blood culture positive 2 out of 4 culture on admission, continue definitive antibiotics with ceftriaxone , follow-up on blood culture done J anuary 31, negative preliminary, patient need a 7-day IV antibiotics at least. 4. A-fib with AVR Heart rate at target on oral metoprolol off diltiazem drip, 80 mg sotalol twice daily started by cardiology, no plan on DC cardioversion, her Kt Vascor is 4 transthoracic echocardiogram reviewed, regional wall motion abnormality but normal left ventricle ejection fraction, no valvular heart disease, I will start her on apixaban to 2.5 mg twice daily #5 DANY secondary to #2 and #3 and dehydration Resolved #6 elevated troponin without acute coronary syndrome associated with #2, 3 and 4 Elevated troponin plateaued, no clinical sign of acute coronary syndrome, nonobstructive coronary artery disease by coronary angiogram, continue aspirin and statin #7 acute urinary retention Bladder training and then plan to remove Busby catheter #8 anemia of infection/inflammation with dilutional anemia Hemoglobin stable around 10-11, no clinical bleeding no transfusion indicated, DVT prophylaxis; apixaban Disposition; possible downgrade tomorrow if patient continues to improve, high risk of clinical deterioration given old age and multiple comorbidities listed above
--- NOTE | 2024-05-04 14:54 | P.PN ---
Nephrology Pt remains in the ICU, per reports, no acute CP or dyspnea voiced but reports ribs sore from coughing. On RA when seen. BP lower after cuff adjustment Vitals, medications, blood work and imaging reviewed in the chart General: In no apparent distress, HEENT: Atraumatic, sclera anicteric, not on O2 Neck: Supple Respiratory: Normal air movement, mildly reduced at bases, non tachypnec Cardiovascular: Tachy, mild, regular mostly Gastrointestinal: Soft, Non-distended and NT Musculoskeletal: No sig edema, shins are NT Integumentary: No rashes Neurological: Normal speech, awake, alert Blood work reviewed in the chart. Imagings Data: Reviewed in the EMR Conclusions/Impression: Stage III ARF per CALLIE def POA 2nd to pre-renal azotemia, resolved -Cr level has downward trended nicely, off IVF now -Risk for ISABEL lower given renal recovery, did hold off on any additional vol bolus at the time of contrast exposure given CXR findings, did dose Lasix 20 mg IV once post cath for urinary excretion. No ISABEL within 24h of LHC yesterday. Cont to monitor NSTEMI, Afib unspecified. Chronic diastolic CHF -LHC findings noted, LVEDP was not reported. Cont to monitor BP, weights and vol status Pneumonia, with Influenza A, Strep Pneumoniae sepsis/bacteremia -Cont Abx and management per IM Hypokalemia -Will cont to replete, will monitor Mg levels
[2024-05-04] MEDS: POTASSIUM CL SA 10 MEQ TAB PO ONE (15:33)
[2024-05-04] MEDS: CODEINE 30MG/APAP 300MG TAB PO PRN (16:20)
[2024-05-04] MEDS: BENZONATATE 100 MG CAP PO PRN (16:53)
[2024-05-04] MEDS: OSELTAMIVIR 30 MG CAP PO SCH (20:49)
[2024-05-04] MEDS: APIXABAN 2.5 MG TABLET PO SCH (20:50)
[2024-05-05 05:46] LABS: Absolute Eosinophils 0.1 K/uL (0-0.5); Absolute Lymphocytes (CBC) 1.8 K/uL (0.7-4.9); Absolute Monocytes 0.6 K/uL (0.1-1.3); Absolute Neutrophil 15.9 K/uL (1.8-8.0); Basophils % 0.1 % (0-1.3); Eosinophils % 0.5 % (0-4.4); Hematocrit 30.2 % (36.0-45.0); Hemoglobin 10.2 g/dL (12.0-15.0); Lymphocytes % 9.8 % (15.3-44.8); MCHC 33.8 g/dL (32.0-36.0); MCV 97.9 fL (80-100); MPV 8.6 fL (7.6-11.3); Monocytes % 3.4 % (3.3-12.3); Neutrophils % 86.2 % (41.7-73.7); Nucleated Red Blood Cells % 0.1 % (0-0); Platelets 237 thou/uL (152-406); RBC Red Blood Cell Count 3.09 M/uL (3.86-4.86); Red Cell Distribution Width 14.1 % (12.1-15.2)
[2024-05-05 06:03] LABS: Anion Gap 9.6 mEq/L (5.0-15.0); Magnesium 1.8 mg/dL (1.6-2.4); Phosphorus 2.9 mg/dL (2.5-4.9); Potassium 3.6 mEq/L (3.5-5.1)
[2024-05-05] MEDS: POTASSIUM CL SA 10 MEQ TAB PO ONE (08:14)
[2024-05-05] MEDS: MAGNESIUM SULFATE 1 gm IVPB 1 GM/100 ML BAG IV ONE (08:15)
[2024-05-05 09:33] LABS: Band Neutrophils 4 % (0-1); Blood Morphology Comment NOT SEEN (NOT SEEN); Differential Total Cells Count 100; Lymphocytes 10 % (15-42); Metamyelocytes 2 % (0-0); Monocytes 6 % (0-10); Myelocytes 1 % (0-0); Platelet Estimate ADEQ; Segmented Neutrophils 77 % (40-80); Toxic Granulation 1+
--- NOTE | 2024-05-05 10:30 | P.PN ---
Subjective Date of Service: 05/05/24 Chief Complaint: Afib Subjective: No new changes She states that she is doing fine, complaining of intermittent shortness of breath and productive cough, tolerating oral diet well without any difficulty. Urine output 1.4 L over the past 24 hours and indwelling Busby catheter Review of Systems Other: Consitutional; fever(-), chills (-), rigor(-), night sweat(-), unintentional weight loss(-), malaise (-) HEENT; diplopia (-), rhinorrhea (-), epistaxis (-), otorrhea (-), otalgia (-) Respiratory; shortness of breath (-), wheezing (-), cough (+), sputum (+), pleuritic chest pain (-) Cardiovascular; chest pain (-), peripheral edema (-), paroxysmal nocturnal dyspnea (-), orthopnea (-) Gastrointestinal; nausea (-), vomiting (-), abdominal pain (-), diarrhea (-), constipation (-), melena (-), hematochezia (-) Genitourinary; urinary frequency (-), dysuria (-), urgency (-), flank pain (-), gross hematuria (-), incontinence (-) Skin; rash (-), pruritus (-) [employer]; headache (-), paresthesia (-), numbness (-), paralysis (-) Physical Examination - Vital Signs Temperature: 99.5 F Blood Pressure: 124/70 Pulse: 108 Respirations: 25 Pulse Ox (%): 97 - Physical Exam Other Physical/Emotional Findings: - Physical Exam. General: Emaciated, no in acute distress,. HEENT: Normocephalic, atraumatic, nonicteric sclera, nonanemic conjunctive. Neck: Supple, without JVD or goiter or thyroid mass. Respirat ory: Normal respiratory effort,, clear breath sound bilaterally with rhonchi but no crackles or wheezing,. Cardiovascular: Irregularly and irregular heartbeat, no murmur no gallop. Gastrointestinal: Normal bowel sounds, nondistended, nontender, No ascites, , No masses, no hepatosplenomegaly. Extremities : No clubbing, No peripheral edema,. Integumentary: No rashes, petechia, suspected lesions. Lymphatics: No axilla or cervical lymphadenopathy. Neurology; alert awake oriented x3, no focal neurologic deficit, normal affection . mood and behavior. - Studies Medications List Reviewed: Yes Assessment And Plan - Plan This is 84 years old female patient with complex medical problem including myasthenia gravis on immunosuppressant, hypertension, questionable pulmonary bronchiectasis, atrial fibrillation who presented to emergency room for shortness of breath and palpitation and chest pain for 3 days and found to have pneumonia, A-fib with rapid ventricular response and DANY and admitted in MICU #1 acute hypoxic respiratory failure related to #2 Improving, stable on 2 L nasal cannula, , 2. Community-acquired pneumonia by Streptococcus pneumonia and influenza A Resolving, her chest x-ray on admission lobar pneumonia in the right lower lobe, No risk of MDR, afebrile, leukopenia resolved, mild leukocytosis now, I will continue ceftriaxone 2 g daily and azithromycin for #2, test positive for influenza A, on oseltamivir 3. Streptococcal pneumonia bacteremia with sepsis related to #2 Improving, blood culture positive 2 out of 4 culture on admission, continue definitive antibiotics with ceftriaxone , follow-up on blood culture done May 03, negative preliminary, patient need a 7-day IV antibiotics at least. 4. A-fib with AVR Heart rate not controlled on oral metoprolol off diltiazem drip, 80 mg sotalol twice daily , no plan on DC cardioversion, her Kt Vascor is 4 , apixaban started yesterday, transthoracic echocardiogram reviewed, regional wall motion abnormality but normal left ventricle ejection fraction, no valvular heart disease, I will titrate metoprolol up to 75 mg twice daily #5 DANY secondary to #2 and #3 and dehydration Resolved #6 elevated troponin without acute coronary syndrome associated with #2, 3 and 4 Elevated troponin plateaued, no clinical sign of acute coronary syndrome, nonobstructive coronary artery disease by coronary angiogram, continue aspirin and statin #7 acute urinary retention Will discontinue Busby catheter and start voiding trial today #8 anemia of infection/inflammation with dilutional anemia Hemoglobin stable around 10-11, no clinical bleeding no transfusion indicated, DVT prophylaxis; apixaban Disposition; will downgrade her once heart heart rate is more controlled, high risk of clinical deterioration given old age and multiple comorbidities listed above
--- NOTE | 2024-05-05 12:37 | P.PN ---
Subjective Date of Service: 05/05/24 Chief Complaint: Afib Subjective: No new changes, No C/O voiced, Tolerating diet, Ambulating, Improving Review of Systems 10-point ROS is otherwise unremarkable Physical Examination - Vital Signs Temperature: 99.5 F Blood Pressure: 129/77 Pulse: 63 Respirations: 22 Pulse Ox (%): 96 - Physical Exam General: Alert, In no apparent distress HEENT: Atraumatic, PERRLA, EOMI Neck: Supple, JVD not distended Respiratory: Clear to auscultation bilaterally, Normal air movement Cardiovascular: Regular rate/rhythm, Normal S1 S2 Gastrointestinal: Normal bowel sounds, No tenderness Musculoskeletal: No tenderness Integumentary: No rashes Neurological: Normal speech, Normal tone, Normal affect Lymphatics: No axilla or inguinal lymphadenopathy Other Physical/Emotional Findings: - Physical Exam. General: Emaciated, no in acute distress,. HEENT: Normocephalic, atraumatic, nonicteric sclera, nonanemic conjunctive. Neck: Supple, without JVD or goiter or thyroid mass. Respiratory: Normal respiratory effort,, clear breath sound bilaterally with rhonchi but no crackles or wheezing,. Cardiovascular: Irregularly and irregular heartbeat, no murmur no gallop. Gastrointestinal: Normal bowel sounds, nondistended, nontender, No ascites, , No masses, no hepatosplenomegaly. Extremities : No clubbing, No peripheral edema,. Integumentary: No rashes, petechia, suspected lesions. Lymphatics: No axilla or cervical lymphadenopathy. Neurology; alert awake oriented x3, no focal neurologic deficit, normal affection . mood and behavior. - Studies Medications List Reviewed: Yes Assessment And Plan - Current Problems (Diagnosis) (1) Atrial fibrillation Current Visit: Yes Status: Acute Plan: per patient she was told she had AF in the past, patient converted into sinus rhythm with medications continue sotalol 80 mg po BID agree with increasing lopressor to 75 mg po BID Continue Eliquis (2) NSTEMI (non-ST elevated myocardial infarction) Current Visit: Yes Status: Acute Plan: patient troponin mild elevated, denies having chest pain, this can be related to DANY and AF echo shown mild reduced LV systolic function with apical and distal anterior gerber akinesis Coronary angiogram done and shows mild non obstructive CAD (3) DANY (acute kidney injury) Current Visit: Yes Status: Acute Plan: not sure about etiology, patient with no signs of volume overload, her elevated NT-ProBNP can be secondary to acute kidney failure. Echo shows normal filling pressure.
--- NOTE | 2024-05-05 17:07 | P.PN ---
Nephrology Pt remains in the ICU, per reports, no acute CP or dyspnea voiced, but back on LFNC. Busby removed earlier, has not voided yet. Still a bit tachy at times, Metoprolol dose raised it appears Vitals, medications, blood work and imaging reviewed in the chart General: In no apparent distress, HEENT: Atraumatic, sclera anicteric, not on O2 Neck: Supple Respiratory: Normal air movement, mildly reduced at bases, non tachypnec Cardiovascular: Tachy, mild, regular mostly Gastrointestinal: Soft, Non-distended and NT Musculoskeletal: No sig edema, shins are NT Integumentary: No rashes Neurological: Normal speech, awake, alert Blood work reviewed in the chart. Imagings Data: Reviewed in the EMR Conclusions/Impression: Stage III ARF per CALLIE def POA 2nd to pre-renal azotemia, resolved -Cr level has downward trended nicely, off IVF now -Risk for ISABEL lower given renal recovery, did hold off on any additional vol bolus at the time of contrast exposure given CXR findings, did dose Lasix 20 mg IV once post cath for urinary excretion. No ISABEL within 48hh of C Fri. Cont to monitor NSTEMI, Afib unspecified. Chronic diastolic CHF -[facility] findings noted, LVEDP was not reported but per Cardiology not sig elevation of filling pressures on TTE. Cont to monitor BP, weights and vol status. No scheduled diuretics ordered currently. Cont Metoprolol, monitor BP closely Pneumonia, with Influenza A, Strep Pneumoniae sepsis/bacteremia -Cont Abx and management per IM Hypokalemia -Will cont to replete to target K levels of 4, will monitor Mg levels
[2024-05-05] MEDS: METOPROLOL TAR 50 MG TAB PO SCH (20:15)
[2024-05-06 00:31] VITALS: BMI 24.0
[2024-05-06] MEDS: HYDROMORPHONE HCL 1 MG/ML INJ IV ONE (00:47)
[2024-05-06] MEDS: HYDROCORTISONE SUC 100 MG INJ IV ONE (08:50)
[2024-05-06 08:57] LABS: Anion Gap 6.1 mEq/L (5.0-15.0); Magnesium 1.9 mg/dL (1.6-2.4); Phosphorus 3.6 mg/dL (2.5-4.9); Potassium 4.1 mEq/L (3.5-5.1)
--- NOTE | 2024-05-06 10:32 | P.PN ---
Date of Service: 05/06/24 Vital Signs Temp Pulse Resp BP Pulse Ox 98.2 F 105 H 22 H 117/59 L 104 05/06/24 08:00 05/06/24 10:00 05/06/24 10:00 05/06/24 10:00 05/06/24 10:00 Medications Acetaminophen (Acetaminophen 325 Mg Tablet) 650 mg PO Q4HP PRN PRN Reason: Pain scale 2-4 (Mild) Last Admin: 05/04/24 13:10 Dose: 650 mg Acetaminophen/Codeine Phosphate (Codeine 30mg/Apap 300mg Tab) 1 tab PO Q6H PRN PRN Reason: Pain scale 5-7 (Moderate) Last Admin: 05/06/24 08:08 Dose: 1 tab Apixaban (Apixaban 2.5 Mg Tablet) 2.5 mg PO BID [facility] Last Admin: 05/06/24 08:08 Dose: 2.5 mg Aspirin (Aspirin Ec 81 Mg Tab) 81 mg PO DAILY [facility] Last Admin: 05/06/24 08:08 Dose: 81 mg Atorvastatin Calcium (Atorvastatin 40 Mg Tab) 40 mg PO BEDTIME [facility] Last Admin: 05/05/24 20:14 Dose: 40 mg Benzonatate (Benzonatate 100 Mg Cap) 100 mg PO TID PRN PRN Reason: COUGH Last Admin: 05/04/24 16:53 Dose: 100 mg Guaifenesin (Guaifenesin 600 Mg Sa Tab) 600 mg PO BID [facility] Last Admin: 05/06/24 08:08 Dose: 600 mg Home Med (Cyclosporine [Restasis]) 1 drop OPTH DAILY [facility] Last Admin: 05/06/24 08:10 Dose: Not Given Home Med (Cyclosporine [Vevye]) 1 drop OPTH DAILY [facility] Last Admin: 05/06/24 08:09 Dose: 1 drop Ceftriaxone Sodium 2,000 mg/ (Sodium Chloride) 100 mls @ 200 mls/hr IV DAILY [facility] Last Admin: 05/06/24 08:09 Dose: 100 mls Ipratropium [place] (Ipratropium Brom 0.5mg/2.5ml) 0.5 mg NEB [id number] [facility] Last Admin: 05/06/24 07:37 Dose: 0.5 mg Levalbuterol HCl (Levalbuterol 1.25 Mg/3 Ml Neb) 1.25 mg NEB [id number] [facility] Last Admin: 05/06/24 07:37 Dose: 1.25 mg Metoprolol Tartrate (Metoprolol Tar 50 Mg Tab) 75 mg PO BID [facility] Last Admin: 05/06/24 08:09 Dose: 75 mg Ondansetron HCl (Ondansetron 4 Mg/2 Ml Vial) 4 mg IV Q6HP PRN PRN Reason: NAUSEA / VOMITING Oseltamivir Phosphate (Oseltamivir 30 Mg Cap) 30 mg PO BID [facility] Stop: 05/08/24 21:01 Last Admin: 05/06/24 08:08 Dose: 30 mg Prednisone (Prednisone 1 Mg Tab) 2 mg PO DAILY [facility] Last Admin: 05/06/24 08:09 Dose: 2 mg Pyridostigmine [place] (Pyridostigmine 60 Mg Tablet) 60 mg PO TID [facility] Last Admin: 05/06/24 08:08 Dose: 60 mg Sotalol HCl (Sotalol Hcl 80 Mg Tab) 80 mg PO BID 6AM 6PM [facility] Last Admin: 05/06/24 06:17 Dose: 80 mg Microbiology Results 04/30/24 18:36 Blood - Blood Aerobic Blood Culture - Final Strep Pneumoniae 04/30/24 18:36 Blood - Blood Blood Culture Gram Stain - Final 04/30/24 18:36 Blood - Blood Anaerobic Blood Culture - Final 04/30/24 18:42 Blood - Blood Aerobic Blood Culture - Final Strep Pneumoniae 04/30/24 18:42 Blood - Blood Blood Culture Gram Stain - Final 04/30/24 18:42 Blood - Blood Anaerobic Blood Culture - Final Assessment/ Plan: Nephrology No dyspnea No chest pain Feeling better No acute events overnight Vitals, medications, blood work and imaging reviewed in the chart General: In no apparent distress, Oriented x3, Cooperative HEENT: Atraumatic Neck: Supple Respiratory: Normal air movement Cardiovascular: No edema, Normal S1 S2 Gastrointestinal: Soft and benign, Non-distended Musculoskeletal: No clubbing, No contractures Integumentary: No rashes, No cyanosis Neurological: Normal speech PW Light Blood work reviewed in the chart. Imagings Data: EXAM: Chest Single View HISTORY: chest nely COMPARISON: 07/11/2016 FINDINGS: LUNGS/PLEURA: New consolidative airspace disease present the right lower lobe. MEDIASTINUM: The mediastinal silhouette is within normal limits. CARDIAC: Mild cardiomegaly UPPER ABDOMEN: No significant abnormality. BONES: No acute abnormality. LINES/TUBES/OTHER: N/A IMPRESSION: New right lower lobe consolidation concerning for pneumonia/pneumonitis. Imaging follow-up in 4-6 weeks is suggested to ensure improvement and/or resolution. Conclusions/Impression: Stage III DANY in the setting of hypovolemia Proteinuria -No NSAIDs Hyponatremia -Caution with excess water intake Hypokalemia -Replete prn HTN -Continue Metoprolol Hypoalbuminemia -Protein supplementation prn Anemia in chronic illness -Monitor H&H Urinary Retention -Bladder scan prn -Straight cath prn Persistent Afib -Continue Sotalol & Metoprolol -Follow up with cardiology CAP -Continue Abx Hospitalist note reviewed
[2024-05-06] MEDS: IPRATROPIUM BROM 0.5MG/2.5ML ONE (20:25)
[2024-05-06] MEDS: LEVALBUTEROL 1.25 MG/3 ML NEB ONE (20:38)
[2024-05-06] MEDS: METOPROLOL TAR 50 MG TAB PO SCH (21:01)
[2024-05-07 07:54] LABS: Anion Gap 7.8 mEq/L (5.0-15.0); Phosphorus 3.5 mg/dL (2.5-4.9); Potassium 3.8 mEq/L (3.5-5.1)
[2024-05-07] MEDS: POTASSIUM CL SA 10 MEQ TAB PO ONE (10:00)
--- NOTE | 2024-05-07 11:44 | RAD REPORT ---
EXAMINATION: TWO VIEW CHEST XR CLINICAL INDICATION: Female, 84 years old. [facility] MAIN Pleuritic CP TECHNIQUE: 2 view radiographs of the chest were performed. COMPARISON: 05/03/2024 FINDINGS: Progressive right basilar pleural-parenchymal opacity with layering at least moderate effusion. Right zapata tracheal deviation again seen. Mild left basilar atelectasis, stable. No pneumothorax or left sizable effusion. The heart is normal in size. Mediastinal contours are unremarkable. IMPRESSION: Progressive right basilar pleural-parenchymal opacity. Underlying pneumonia should be considered.
--- NOTE | 2024-05-07 12:28 | EKG ---
Test Date: 2024-05-03 Test Time: 10:54:32 Satin Finisher: CURTIS MEASUREMENT RESULTS: Intervals: Rate: 100 KS: 140 QRSD: 120 QT: 366 QTc: 472 [place]: P: 99 KS: 140 QRS: -65 T: 110 INTERPRETIVE STATEMENTS: Normal sinus rhythm Left axis deviation Inferior infarct, age undetermined Anterolateral infarct, age undetermined Abnormal ECG Compared to ECG 04/30/2024 16:42:20 Atrial fibrillation no longer present ST (T wave) deviation no longer present Possible ischemia no longer present Myocardial infarct finding still present Electronically Signed On 05-07-24 12:20:18 CONDUIT HELPER by Brenden Gomez
--- NOTE | 2024-05-07 12:34 | EKG ---
Test Date: 2024-05-02 Test Time: 11:41:20 Towel Inspector: 0000 MEASUREMENT RESULTS: Intervals: Rate: 89 OR: 144 QRSD: 120 QT: 350 QTc: 425 [place]: P: OR: 144 QRS: 127 T: -69 INTERPRETIVE STATEMENTS: Sinus rhythm with premature atrial complexes Anterolateral infarct, age undetermined ST & T wave abnormality, consider inferior ischemia Abnormal ECG Compared to ECG 04/30/2024 16:42:20 Atrial premature complex(es) now present Atrial fibrillation no longer present Left-axis deviation no longer present Myocardial infarct finding still present ST (T wave) deviation still present Possible ischemia still present Electronically Signed On 05-07-24 12:22:32 CORN HUSK BALER by Brenden Gomez
--- NOTE | 2024-05-07 12:44 | EKG ---
Test Date: 2024-04-30 Test Time: 16:42:20 Intrusion Analyst: ALVIN MEASUREMENT RESULTS: Intervals: Rate: 157 NM: QRSD: 112 QT: 254 QTc: 410 [place]: P: NM: QRS: -80 T: 118 INTERPRETIVE STATEMENTS: Atrial fibrillation Left axis deviation Inferior infarct, age undetermined Anteroseptal infarct, age undetermined ST & T wave abnormality, consider lateral ischemia or digitalis effect Abnormal ECG No previous ECG available for comparison Electronically Signed On 05-07-24 12:25:26 RADIO MECHANIC by Brenden Gomez
--- NOTE | 2024-05-07 16:31 | P.PN ---
Date of Service: 05/07/24 Subjective Complaining of pleurisy, chest x-ray repeated, shows worsening pneumonia, will escalate IV antibiotic Review of Systems 10 point review of systems negative unless listed in HPI Physical Examination - Vital Signs reviewed - Physical Exam General: Alert, oriented x 3, emaciated, HEENT: Normocephalic, atraumatic, Neck: Supple, without JVD Respiratory: Diminished, pleuritic chest pain, Cardiovascular: Irregularly and irregular heartbeat, Gastrointestinal: Normal bowel sounds, nondistended, nontender, Extremities : No clubbing, No peripheral edema,. Integumentary: No rashes, petechia, suspected lesions. Lymphatics: No axilla or cervical lymphadenopathy. Neurology; alert awake oriented x3, no focal neurologic deficit Assessment And Plan - Plan This is 84 years old female patient with complex medical problem including myasthenia gravis on immunosuppressant, hypertension, questionable pulmonary bronchiectasis, atrial fibrillation who presented to emergency room for shortness of breath and palpitation and chest pain for 3 days and found to have pneumonia, A-fib with rapid ventricular response and DANY and admitted in MICU #1 acute hypoxic respiratory failure related to #2 Improving, stable on 2 L nasal cannula, , 2. Community-acquired pneumonia by Streptococcus pneumonia and influenza A worsening Resolving, her chest x-ray on admission lobar pneumonia in the right lower lobe, No risk of MDR, afebrile, leukopenia resolved, mild leukocytosis now, Ceftriaxone changed to Levaquin, vancomycin, will repeat blood cultures 2/4 Chest x-ray was worse today test positive for influenza A, on oseltamivir 3. Streptococcal pneumonia bacteremia with sepsis related to #2 Improving, blood culture positive 2 out of 4 culture on admission, continue definitive antibiotics with ceftriaxone , follow-up on blood culture done May 03, negative preliminary, patient need a 7-day IV antibiotics at least. 4. A-fib with AVR Heart rate not controlled on oral metoprolol off diltiazem drip, 80 mg sotalol twice daily , no plan on DC cardioversion, her Kt Vascor is 4 , apixaban started yesterday, transthoracic echocardiogram reviewed, regional wall motion abnormality but normal left ventricle ejection fraction, no valvular heart disease, I will titrate metoprolol up to 75 mg twice daily #5 DANY secondary to #2 and #3 and dehydration Resolved #6 elevated troponin without acute coronary syndrome associated with #2, 3 and 4 Elevated troponin plateaued, no clinical sign of acute coronary syndrome, nonobstructive coronary artery disease by coronary angiogram, continue aspirin and statin #7 acute urinary retention Will discontinue Busby catheter and start voiding trial today #8 anemia of infection/inflammation with dilutional anemia Hemoglobin stable around 10-11, no clinical bleeding no transfusion indicated, DVT prophylaxis; apixaban Disposition; downgrade her once heart heart rate is more controlled, high risk of clinical deterioration given old age and multiple comorbidities listed above
[2024-05-07] MEDS ORDERED: VANCOMYCIN 1 GM in NA CHLORIDE 0.9% 250 ML IVPB SCH (17:00)
[2024-05-07] MEDS: Levofloxacin 750mg IV 750 MG/150 ML BAG IV SCH (17:00)
[2024-05-07] MEDS: levoFLOXacin 750 MG TAB PO SCH (17:45)
[2024-05-07] MEDS: VANCOMYCIN 1.5 GM in NA CHLORIDE 0.9% 500 ML IVPB ONE (18:18)
--- NOTE | 2024-05-07 19:21 | P.PN ---
Date of Service: 05/07/24 Vital Signs Temp Pulse Resp BP Pulse Ox 98.0 F 105 H 18 139/71 97 05/07/24 15:41 05/07/24 15:41 05/07/24 15:41 05/07/24 15:41 05/07/24 15:41 Medications Acetaminophen (Acetaminophen 325 Mg Tablet) 650 mg PO Q4HP PRN PRN Reason: Pain scale 2-4 (Mild) Last Admin: 05/04/24 13:10 Dose: 650 mg Acetaminophen/Codeine Phosphate (Codeine 30mg/Apap 300mg Tab) 1 tab PO Q6H PRN PRN Reason: Pain scale 5-7 (Moderate) Last Admin: 05/07/24 14:11 Dose: 1 tab Apixaban (Apixaban 2.5 Mg Tablet) 2.5 mg PO BID [facility] Last Admin: 05/07/24 10:01 Dose: 2.5 mg Aspirin (Aspirin Ec 81 Mg Tab) 81 mg PO DAILY [facility] Last Admin: 05/07/24 10:01 Dose: 81 mg Atorvastatin Calcium (Atorvastatin 40 Mg Tab) 40 mg PO BEDTIME [facility] Last Admin: 05/06/24 21:02 Dose: 40 mg Benzonatate (Benzonatate 100 Mg Cap) 100 mg PO TID PRN PRN Reason: COUGH Last Admin: 05/07/24 10:00 Dose: 100 mg Guaifenesin (Guaifenesin 600 Mg Sa Tab) 600 mg PO BID [facility] Last Admin: 05/07/24 10:01 Dose: 600 mg Home Med (Cyclosporine [Restasis]) 1 drop OPTH DAILY [facility] Last Admin: 05/07/24 09:00 Dose: Not Given Home Med (Cyclosporine [Vevye]) 1 drop OPTH DAILY [facility] Last Admin: 05/07/24 09:00 Dose: 1 drop Vancomycin HCl 1.5 gm/ Sodium (Chloride) 500 mls @ 250 mls/hr IVPB 1X ONE; P rotocol Stop: 05/07/24 19:59 Last Admin: 05/07/24 18:18 Dose: 500 mls Vancomycin HCl 1.25 gm/ Sodium (Chloride) 250 mls @ 166.667 mls/hr IVPB Q24H [facility]; Protocol Ipratropium [place] (Ipratropium Brom 0.5mg/2.5ml) 0.5 mg NEB [id number] [facility] Last Admin: 05/07/24 13:43 Dose: 0.5 mg Levalbuterol HCl (Levalbuterol 1.25 Mg/3 Ml Neb) 1.25 mg NEB [id number] [facility] Last Admin: 05/07/24 13:43 Dose: 1.25 mg Levofloxacin (Levofloxacin 750 Mg Tab) 750 mg PO DAILY [facility]; Protocol Last Admin: 05/07/24 17:45 Dose: 750 mg Metoprolol Tartrate (Metoprolol Tar 50 Mg Tab) 100 mg PO BID [facility] Last Admin: 05/07/24 10:02 Dose: 100 mg Nutritional Formula (Ensure Enlive 237 Ml Can) 237 ml PO BID [facility] Ondansetron HCl (Ondansetron 4 Mg/2 Ml Vial) 4 mg IV Q6HP PRN PRN Reason: NAUSEA / VOMITING Oseltamivir Phosphate (Oseltamivir 30 Mg Cap) 30 mg PO BID [facility] Stop: 05/08/24 21:01 Last Admin: 05/07/24 10:02 Dose: 30 mg Prednisone (Prednisone 1 Mg Tab) 2 mg PO DAILY [facility] Last Admin: 05/07/24 09:59 Dose: 2 mg Pyridostigmine [place] (Pyridostigmine 60 Mg Tablet) 60 mg PO TID [facility] Last Admin: 05/07/24 14:11 Dose: 60 mg Sotalol HCl (Sotalol Hcl 80 Mg Tab) 80 mg PO BID 6AM 6PM [facility] Last Admin: 05/07/24 17:45 Dose: 80 mg Microbiology Results 04/30/24 18:36 Blood - Blood Aerobic Blood Culture - Final Strep Pneumoniae 04/30/24 18:36 Blood - Blood Blood Culture Gram Stain - Final 04/30/24 18:36 Blood - Blood Anaerobic Blood Culture - Final 04/30/24 18:42 Blood - Blood Aerobic Blood Culture - Final Strep Pneumoniae 04/30/24 18:42 Blood - Blood Blood Culture Gram Stain - Final 04/30/24 18:42 Blood - Blood Anaerobic Blood Culture - Final Assessment/ Plan: Nephrology No dyspnea No chest pain Feeling better with improving cough Denies urinary retention No acute events overnight Vitals, medications, blood work and imaging reviewed in the chart General: In no apparent distress, Oriented x3, Cooperative HEENT: Atraumatic Neck: Supple Respiratory: Normal air movement Cardiovascular: No edema, Normal S1 S2 Gastrointestinal: Soft and benign, Non-distended Musculoskeletal: No clubbing, No contractures Integumentary: No rashes, No cyanosis Neurological: Normal speech PW Light Blood work reviewed in the chart. Imagings Data: EXAM: Chest Single View HISTORY: chest nely COMPARISON: 07/11/2016 FINDINGS: LUNGS/PLEURA: New consolidative airspace disease present the right lower lobe. MEDIASTINUM: The mediastinal silhouette is within normal limits. CARDIAC: Mild cardiomegaly UPPER ABDOMEN: No significant abnormality. BONES: No acute abnormality. LINES/TUBES/OTHER: N/A IMPRESSION: New right lower lobe consolidation concerning for pneumonia/pneumonitis. Imaging follow-up in 4-6 weeks is suggested to ensure improvement and/or resolution. Conclusions/Impression: Stage III DANY in the setting of hypovolemia Proteinuria -No NSAIDs Hyponatremia -Caution with excess water intake Hypokalemia -Replete prn HTN -Continue Metoprolol Hypoalbuminemia -Protein supplementation prn Anemia in chronic illness -Monitor H&H Urinary Retention -Bladder scan prn -Straight cath prn Persistent Afib -Continue Sotalol & Metoprolol -Follow up with cardiology CAP -Continue Abx Hospitalist note reviewed
[2024-05-07] MEDS: ENSURE ENLIVE 237 ML CAN PO SCH (21:04)
--- NOTE | 2024-05-08 02:18 | P.PN ---
Subjective Date of Service: 05/06/24 Patient's clinical symptoms have improved. Go ahead and transfer to general medical floor. Review of Systems 10-point ROS is otherwise unremarkable Physical Examination - Vital Signs Temperature: 97.6 F Blood Pressure: 110/71 Pulse: 103 Respirations: 18 Pulse Ox (%): 95 - Physical Exam General: Alert, In no apparent distress HEENT: Atraumatic, PERRLA, EOMI Neck: Supple, JVD not distended Respiratory: Clear to auscultation bilaterally, Normal air movement Cardiovascular: Regular rate/rhythm, Normal S1 S2 Gastrointestinal: Normal bowel sounds, No tenderness Musculoskeletal: No tenderness Integumentary: No rashes Neurological: Normal speech, Normal tone, Normal affect Lymphatics: No axilla or inguinal lymphadenopathy Other Physical/Emotional Findings: - Physical Exam. General: Emaciated, no in acute distress,. HEENT: Normocephalic, atraumatic, nonicteric sclera, nonanemic conjunctive. Neck: Supple, without JVD or goiter or thyroid mass. Respiratory: Normal respiratory effort,, clear breath sound bilaterally with rhonchi but no crackles or wheezing,. Cardiovascular: Irregularly and irregular heartbeat, no murmur no gallop. Gastrointestinal: Normal bowel sounds, nondistended, nontender, No ascites, , No masses, no hepatosplenomegaly. Extremities : No clubbing, No peripheral edema,. Integumentary: No rashes, petechia, suspected lesions. Lymphatics: No axilla or cervical lymphadenopathy. Neurology; alert awake oriented x3, no focal neurologic deficit, normal affection . mood and behavior. - Studies Medications List Reviewed: Yes Assessment & Plan - Problems (Diagnosis) (1) DANY (acute kidney injury) Current Visit: Yes Status: Acute (2) Atrial fibrillation Current Visit: Yes Status: Acute (3) NSTEMI (non-ST elevated myocardial infarction) Current Visit: Yes Status: Acute - Advance Directives Does patient have a Living Will: No Does patient have a Durable POA for Healthcare: No - Code Status/Comfort Care Code Status: Full Code
[2024-05-08 05:19] LABS: Absolute Eosinophils 0.2 K/uL (0-0.5); Absolute Lymphocytes (CBC) 1.6 K/uL (0.7-4.9); Absolute Monocytes 0.7 K/uL (0.1-1.3); Absolute Neutrophil 8.9 K/uL (1.8-8.0); Basophils % 0.4 % (0-1.3); Eosinophils % 1.6 % (0-4.4); Hematocrit 26.7 % (36.0-45.0); Hemoglobin 9.1 g/dL (12.0-15.0); Lymphocytes % 14.3 % (15.3-44.8); MCH 33.3 pg (27.0-35.0); MCHC 33.9 g/dL (32.0-36.0); MCV 98.5 fL (80-100); MPV 7.8 fL (7.6-11.3); Monocytes % 6.4 % (3.3-12.3); Nucleated Red Blood Cells % 0.1 % (0-0); Platelets 407 thou/uL (152-406); RBC Red Blood Cell Count 2.72 M/uL (3.86-4.86)
[2024-05-08 05:24] LABS: Neutrophils % 77.3 % (41.7-73.7)
[2024-05-08 05:57] LABS: Anion Gap 9.8 mEq/L (5.0-15.0); Magnesium 1.9 mg/dL (1.6-2.4); Potassium 3.8 mEq/L (3.5-5.1)
[2024-05-08] MEDS: POTASSIUM 25 MEQ EFFERV TAB PO ONE (08:51)
[2024-05-08] MEDS: VANCOMYCIN 1.25 GM in NA CHLORIDE 0.9% 250 ML IVPB SCH (17:36)
[2024-05-08] MEDS ORDERED: VANCOMYCIN 1.25 GM in NA CHLORIDE 0.9% 250 ML IVPB SCH (18:00)
--- NOTE | 2024-05-08 20:30 | P.PN ---
Date of Service: 05/08/24 Vital Signs Temp Pulse Resp BP Pulse Ox 98.2 F 103 H 14 146/81 H 92 05/08/24 16:00 05/08/24 20:05 05/08/24 16:00 05/08/24 20:05 05/08/24 16:00 Medications Acetaminophen (Acetaminophen 325 Mg Tablet) 650 mg PO Q4HP PRN PRN Reason: Pain scale 2-4 (Mild) Last Admin: 05/04/24 13:10 Dose: 650 mg Acetaminophen/Codeine Phosphate (Codeine 30mg/Apap 300mg Tab) 1 tab PO Q6H PRN PRN Reason: Pain scale 5-7 (Moderate) Last Admin: 05/07/24 14:11 Dose: 1 tab Apixaban (Apixaban 2.5 Mg Tablet) 2.5 mg PO BID [facility] Last Admin: 05/08/24 20:04 Dose: 2.5 mg Aspirin (Aspirin Ec 81 Mg Tab) 81 mg PO DAILY [facility] Last Admin: 05/08/24 08:51 Dose: 81 mg Atorvastatin Calcium (Atorvastatin 40 Mg Tab) 40 mg PO BEDTIME [facility] Last Admin: 05/08/24 20:04 Dose: 40 mg Benzonatate (Benzonatate 100 Mg Cap) 100 mg PO TID PRN PRN Reason: COUGH Last Admin: 05/07/24 10:00 Dose: 100 mg Guaifenesin (Guaifenesin 600 Mg Sa Tab) 600 mg PO BID [facility] Last Admin: 05/08/24 20:05 Dose: 600 mg Home Med (Cyclosporine [Restasis]) 1 drop OPTH DAILY [facility] Last Admin: 05/08/24 08:24 Dose: Not Given Home Med (Cyclosporine [Vevye]) 1 drop OPTH DAILY [facility] Last Admin: 05/08/24 08:24 Dose: Not Given Vancomycin HCl 1.25 gm/ Sodium (Chloride) 250 mls @ 166.667 mls/hr IVPB Q24H [facility]; Protocol Last Admin: 05/08/24 17:36 Dose: 250 mls Ipratropium [place] (Ipratropium Brom 0.5mg/2.5ml) 0.5 mg NEB [id number] [facility] Last Admin: 05/08/24 13:48 Dose: 0.5 mg Levalbuterol HCl (Levalbuterol 1.25 Mg/3 Ml Neb) 1.25 mg NEB [id number] [facility] Last Admin: 05/08/24 13:48 Dose: 1.25 mg Levofloxacin (Levofloxacin 750 Mg Tab) 750 mg PO DAILY [facility]; Protocol Last Admin: 05/08/24 08:51 Dose: 750 mg Metoprolol Tartrate (Metoprolol Tar 50 Mg Tab) 100 mg PO BID [facility] Last Admin: 05/08/24 20:05 Dose: 100 mg Nutritional Formula (Ensure Enlive 237 Ml Can) 237 ml PO BID [facility] Last Admin: 05/08/24 20:03 Dose: Not Given Ondansetron HCl (Ondansetron 4 Mg/2 Ml Vial) 4 mg IV Q6HP PRN PRN Reason: NAUSEA / VOMITING Oseltamivir Phosphate (Oseltamivir 30 Mg Cap) 30 mg PO BID [facility] Stop: 05/08/24 21:01 Last Admin: 05/08/24 20:06 Dose: 30 mg Prednisone (Prednisone 1 Mg Tab) 2 mg PO DAILY [facility] Last Admin: 05/08/24 08:52 Dose: 2 mg Pyridostigmine [place] (Pyridostigmine 60 Mg Tablet) 60 mg PO TID [facility] Last Admin: 05/08/24 20:04 Dose: 60 mg Sotalol HCl (Sotalol Hcl 80 Mg Tab) 80 mg PO BID 6AM 6PM [facility] Last Admin: 05/08/24 17:36 Dose: 80 mg Microbiology Results 04/30/24 18:36 Blood - Blood Aerobic Blood Culture - Final Strep Pneumoniae 04/30/24 18:36 Blood - Blood Blood Culture Gram Stain - Final 04/30/24 18:36 Blood - Blood Anaerobic Blood Culture - Final 04/30/24 18:42 Blood - Blood Aerobic Blood Culture - Final Strep Pneumoniae 04/30/24 18:42 Blood - Blood Blood Culture Gram Stain - Final 04/30/24 18:42 Blood - Blood Anaerobic Blood Culture - Final Assessment/ Plan: Nephrology No dyspnea No chest pain Reports fatigue yesterday with episode of tachycardia No acute events overnight Vitals, medications, blood work and imaging reviewed in the chart General: In no apparent distress, Oriented x3, Cooperative HEENT: Atraumatic Neck: Supple Respiratory: Normal air movement Cardiovascular: No edema, Normal S1 S2 Gastrointestinal: Soft and benign, Non-distended Musculoskeletal: No clubbing, No contractures Integumentary: No rashes, No cyanosis Neurological: Normal speech Blood work reviewed in the chart. Imagings Data: EXAM: Chest Single View HISTORY: chest nely COMPARISON: 07/11/2016 FINDINGS: LUNGS/PLEURA: New consolidative airspace disease present the right lower lobe. MEDIASTINUM: The mediastinal silhouette is within normal limits. CARDIAC: Mild cardiomegaly UPPER ABDOMEN: No significant abnormality. BONES: No acute abnormality. LINES/TUBES/OTHER: N/A IMPRESSION: New right lower lobe consolidation concerning for pneumonia/pneumonitis. Imaging follow-up in 4-6 weeks is suggested to ensure improvement and/or resolution. Conclusions/Impression: Stage III DANY in the setting of hypovolemia Proteinuria -No NSAIDs Hyponatremia -Caution with excess water intake Hypokalemia -Replete as ordered HTN -Continue Metoprolol Hypoalbuminemia -Protein supplementation prn Anemia in chronic illness -Monitor H&H Urinary Retention -Bladder scan prn -Straight cath prn Persistent Afib -Continue Sotalol & Metoprolol -Follow up with cardiology CAP -Continue Abx Hospitalist note reviewed
[2024-05-08] MEDS: IPRATROPIUM BROM 0.5MG/2.5ML ONE (20:31)
[2024-05-08] MEDS: LEVALBUTEROL 1.25 MG/3 ML NEB ONE (20:32)
--- NOTE | 2024-05-08 21:33 | P.PN ---
Date of Service: 05/08/24 Subjective Reports feeling better, white count improved, Review of Systems 10 point review of systems negative unless listed in HPI Physical Examination - Vital Signs reviewed - Physical Exam General: Alert, oriented x 3, no acute distress noted HEENT: Normocephalic, atraumatic, Neck: Supple, without JVD Respiratory: Diminished, pleuritic chest pain, Cardiovascular: Sinus tachycardia 103 Gastrointestinal: Normal bowel sounds, nondistended, nontender, Extremities : No clubbing, No peripheral edema,. Integumentary: No rashes, petechia, suspected lesions. Lymphatics: No axilla or cervical lymphadenopathy. Neurology; alert awake oriented x3, no focal neurologic deficit Assessment And Plan - Plan This is 84 years old female patient with complex medical problem including myasthenia gravis on immunosuppressant, hypertension, questionable pulmonary bronchiectasis, atrial fibrillation who presented to emergency room for shor tness of breath and palpitation and chest pain for 3 days and found to have pneumonia, A-fib with rapid ventricular response and DANY and admitted in MICU acute hypoxic respiratory failure related to community-acquired pneumonia/flu A Improving, stable on 2 L nasal cannula, , Room air sats 87%, Pulmonary consult Community-acquired pneumonia by Streptococcus pneumonia and influenza A improving Resolving, her chest x-ray on admission lobar pneumonia in the right lower lobe, No risk of MDR, afebrile, leukopenia resolved, mild leukocytosis now, Ceftriaxone changed to Levaquin, vancomycin, will repeat blood cultures / Chest x-ray was worse today test positive for influenza A, on oseltamivir / Repeat chest x-ray ordered Streptococcal pneumonia bacteremia with sepsis related to #2 Improving, blood culture positive 2 out of 4 culture on admission, continue definitive antibiotics with ceftriaxone , follow-up on blood culture done May 03, negative preliminary, patient need a 7-day IV antibiotics at least. A-fib with AVR uncontrolled Heart rate not controlled on oral metoprolol off diltiazem drip, 80 mg sotalol twice daily , no plan on DC cardioversion, her Kt Vascor is 4 apixaban transthoracic echocardiogram regional wall motion abnormality but normal left ventricle ejection fraction, no valvular heart disease, metoprolol Metoprolol 100 p.o. twice daily Sotalol 80 twice daily DANY secondary to #2 and #3 and dehydration Nephrology following elevated troponin without acute coronary syndrome associated with #2, 3 and 4 Elevated troponin plateaued, no clinical sign of acute coronary syndrome, nonobstructive coronary artery disease by coronary angiogram, continue aspirin and statin acute urinary retention Straight cath as needed, bladder scan as needed anemia of infection/inflammation with dilutional anemia Hemoglobin stable around 10-11, no clinical bleeding no transfusion indicated, DVT prophylaxis; apixaban Disposition; downgrade her once heart heart rate is more controlled, high risk of clinical deterioration given old age and multiple comorbidities listed above
--- NOTE | 2024-05-08 21:49 | P.DS ---
Admission Date: 04/30/24 Discharge Date: 05/09/24 Disposition: DC HOME/HOME HEALTH CARE Discharge Condition: GOOD Reason for Admission: Afib Brief History of Present Illness: 84 yrs old Female with past medical history of myasthenia gravis, hypertension, history of atrial fibrillation, CHF, followed by , history of bronchiectasis Brought to ER with shortness of breath and chest discomfort and palpitation decreased appetite which has been going on for the last 3 days and has been progressively getting worse and was brought to ER. Patient was assessed in the ER and is admitted for further management of A-fib with RVR. - Physical Exam General: Alert, Oriented x3, no acute distress noted HEENT: Atraumatic, Normocephalic Neck: 2+ carotid pulse no bruit Respiratory: Normal air movement, inspiratory wheezes Cardiovascular: Irregular heart rate/rhythm Capillary refill: <2 Seconds Gastrointestinal: Soft and benign, W/out hepatosplenomegaly Musculoskeletal: No clubbing Integumentary: No rashes, No significant lesion, No tenderness/swelling Neurological: Normal speech, Normal strength at 5/5 x4 extr, Lymphatics: No axilla or inguinal lymphadenopathy Hospital Course: 84 yrs old Female with past medical history of myasthenia gravis, hypertension, history of atrial fibrillation, CHF, followed by , history of bronchiectasis Brought to ER with shortness of breath and chest discomfort and palpitation decreased appetite which has been going on for the last 3 days and has been progressively getting worse and was brought to ER. Patient was assessed in the ER and is admitted for further management of A-fib with RVR. [facility] had noted elevated troponins, NSTEMI type II, cardiology was consulted. Had noted lactic acidosis, pneumonia, influenza type A, treated with IV antibiotics, oxygen, she was downgraded to the floor, stable to discharge home, follow-up with cardiology /pulmonology after discharge on home 02, Discharged home on Levaquin 1 p.o. daily for 7 days #7 Atrovent nebs, prednisone 2 mg p.o. daily Eliquis 2.5 p.o. twice daily Sotalol 80 mg 1 p.o. twice daily Metoprolol 100 mg twice daily /6 Repeat chest x-ray in the a.m.No significant change i Assessment A-fib RVR started on sotalol plan to discharge home on 80 mg twice daily, metoprolol 100 mg 1 p.o. twice daily-Eliquis 2.5 p.o. twice daily follow-up with cardiology after discharge NSTEMI, elevated troponin, treated with Eliquis, Acute on chronic diastolic heart failure Community-acquired pneumonia, influenza type A, pulmonary consulted, 87% on room air, eval for home O2, discharged home on p.o. antibiotics, nebulizers, Streptococcal pneumonia bacteremia with sepsis, repeat blood cultures were negative Acute kidney injury secondary to dehydration, nephrology was following, Acute urinary urinary retention, improved, urinating without difficulty-improved Microcytic anemia, anemia stable, Continue home medicines as previously prescribed GOAL: Clear understanding of disease process INSTRUCTIONS: Physician Discharge Instructions: -Follow-up with cardiology after discharge for A-fib RVR, NSTEMI -Follow-up with PCP in 1 to 2 weeks -Please call Dr. Stinson at [phone] if any questions regarding hospital stay -Please call nursing station at [phone] if any nursing or medication questions -Return to the emergency room if symptoms worsen Diet: ADA, low sodium Activity: Fall precautions Vital Signs/Physical Exam: Temp Pulse Resp BP Pulse Ox 98.2 F 103 H 14 146/81 H 92 05/08/24 16:00 05/08/24 20:05 05/08/24 16:00 05/08/24 20:05 05/08/24 16:00 Other Physical/Emotional Findings: - Physical Exam. General: Emaciated, no in acute distress,. HEENT: Normocephalic, atraumatic, nonicteric sclera, nonanemic conjunctive. Neck: Supple, without JVD or goiter or thyroid mass. Resp iratory: Normal respiratory effort,, clear breath sound bilaterally with rhonchi but no crackles or wheezing,. Cardiovascular: Irregularly and irregular heartbeat, no murmur no gallop. Gastrointestinal: Normal bowel sounds, nondistended, nontender, No ascites, , No masses, no hepatosplenomegaly. Extremities : No clubbing, No peripheral edema,. Integumentary: No rashes, petechia, suspected lesions. Lymphatics: No axilla or cervical lymphadenopathy. Neurology; alert awake oriented x3, no focal neurologic deficit, normal affection . mood and behavior. Laboratory Data at Discharge: WBC 11.50 thou/uL (4.3-10.9) H 05/08/24 05:00 Hgb 9.1 g/dL (12.0-15.0) L 05/08/24 05:00 Hct 26.7 % (36.0-45.0) L 05/08/24 05:00 Plt Count 407 thou/uL (152-406) H 05/08/24 05:00 PT 11.1 SECONDS (9.4-12.5) 04/30/24 16:54 INR 1.06 04/30/24 16:54 APTT 74.9 SECONDS (24.3-36.9) H 05/03/24 14:28 Sodium 135 mEq/L (136-145) L 05/08/24 05:00 Potassium 3.8 mEq/L (3.5-5.1) 05/08/24 05:00 BUN 21 mg/dL (7-18) H 05/08/24 05:00 Creatinine 0.68 mg/dL (0.55-1.02) 05/08/24 05:00 Glucose 85 mg/dL (74-106) 05/08/24 05:00 Phosphorus 3.5 mg/dL (2.5-4.9) 05/07/24 07:32 Magnesium 1.9 mg/dL (1.6-2.4) 05/08/24 05:00 Total Bilirubin 0.4 mg/dL (0.2-1.0) 05/01/24 07:56 AST 24 U/L (15-37) 05/01/24 07:56 ALT 19 U/L (13-56) 05/01/24 07:56 Alkaline Phosphatase 48 U/L (45-117) 05/01/24 07:56 Home Medications: Ardes2 2 tab PO DAILY 04/30/24 Cholecalciferol (Vitamin D3) [Vitamin D3] 5,000 unit PO DAILY 04/30/24 Dupilumab [Dupixent Pen] 200 mg SQ EVERY 7TH DAY 04/30/24 Ipratropium/Albuterol Sulfate [Combivent Respimat 20-100 Mcg] 4 gm IH DAILY PRN 04/30/24 Levocetirizine Dihydrochloride [Xyzal] 5 mg PO DAILY 04/30/24 Losartan/Hydrochlorothiazide [Losartan-Hctz 100-25 mg Tab] 1 tab PO DAILY 04/30/24 cycloSPORINE [Restasis] 1 drop EACH EYE DAILY 04/30/24 cycloSPORINE [Vevye] 1 drop EACH EYE DAILY 04/30/24 predniSONE [Prednisone*] 2 tab PO DAILY 04/30/24 pyRIDostigmine bromide [Pyridostigmine [place]] 1 tab PO TID 04/30/24 Apixaban [Eliquis *] 2.5 mg PO BID #60 tab 05/08/24 Atorvastatin Calcium [Lipitor] 40 mg PO BEDTIME #30 tab 05/08/24 Benzonatate [Tessalon Perle*] 100 mg PO TID PRN #20 cap 05/08/24 Cefdinir [Cefdinir*] 300 mg PO BID #14 cap 05/08/24 Ensure Enlive 237 ml PO BID #60 can 05/08/24 Metoprolol Tartrate [Lopressor*] 100 mg PO BID #120 tab 05/08/24 Oseltamivir Phosphate [Tamiflu] 30 mg PO BID #4 cap 05/08/24 Sotalol HCl [Betapace*] 80 mg PO BID 6AM 6PM #60 tab 05/08/24 New Medications: Sotalol HCl [Betapace*] 80 mg PO BID 6AM 6PM #60 tab Cefdinir [Cefdinir*] 300 mg PO BID #14 cap Apixaban [Eliquis *] 2.5 mg PO BID #60 tab Ensure Enlive 237 ml PO BID #60 can Atorvastatin Calcium [Lipitor] 40 mg PO BEDTIME #30 tab Metoprolol Tartrate [Lopressor*] 100 mg PO BID #120 tab Oseltamivir Phosphate [Tamiflu] 30 mg PO BID #4 cap Benzonatate [Tessalon Perle*] 100 mg PO TID PRN #20 cap PRN Reason: Cough Physician Discharge Instructions: [facility] [employer] Worker Call Lynnette Bryant MA at [phone] for questions or concerns after discharge. Expect a call within 1-2 business days of discharge. Alternate: Jesenia Carballo MA at [phone] -DC IV and DC home -Follow-up with PCP in 1 to 2 weeks -Follow-up with Cardiology in 1 to 2 weeks -Please call Dr. Stinson at [phone] if any questions regarding hospital stay -Please call nursing station at [phone] if any nursing or medication quest ions -Return to the emergency room if symptoms worsen 84 yrs old Female with past medical history of myasthenia gravis, hypertension, history of atrial fibrillation, CHF, followed by , history of bronchiectasis Brought to ER with shortness of breath and chest discomfort and palpitation decreased appetite which has been going on for the last 3 days and has been progressively getting worse and was brought to ER. Patient was assessed in the ER and is admitted for further management of A-fib with RVR. She was admitted to ICU on Cardizem drip, had noted elevated troponins, NSTEMI type II, cardiology was consulted. Had noted lactic acidosis, pneumonia, influenza type A, treated with IV antibiotics, oxygen, she was downgraded to the floor, stable to discharge home, follow-up with cardiology /pulmonology after discharge Discharged home on Levaquin 1 p.o. daily for 7 days #7 Atrovent nebs, prednisone 2 mg p.o. daily Eliquis 2.5 p.o. twice daily Sotalol 80 mg 1 p.o. twice daily Metoprolol 100 mg twice daily 2/6 Repeat chest x-ray in the a.m. Assessment A-fib RVR started on sotalol plan to discharge home on 80 mg twice daily, metoprolol 100 mg 1 p.o. twice daily-Eliquis 2.5 p.o. twice daily follow-up with cardiology after discharge NSTEMI, elevated troponin, treated with Eliquis, Acute on chronic diastolic heart failure Community-acquired pneumonia, influenza type A, pulmonary consulted, 87% on room air, eval for home O2, discharged home on p.o. antibiotics, nebulizers, Streptococcal pneumonia bacteremia with sepsis, repeat blood cultures were negative Acute kidney injury secondary to dehydration, nephrology was following, Acute urinary urinary retention, improved, urinating without difficulty-improved Microcytic anemia, anemia stable, Continue home medicines as previously prescribed GOAL: Clear understanding of disease process Diet: ADA, low sodium Activity: Fall precautions Diet: AHA Activity: Fall precautions Followup: Brenden Gomez MD [ACTIVE - CAN ADMIT] - 1-2 Weeks Sb Macario DO [Primary Care Provider] - 1-2 Weeks Robert Harman MD [ACTIVE - CAN ADMIT] - Time spent managing pt's care (in minutes): 45
[2024-05-09] MEDS: LEVALBUTEROL 1.25 MG/3 ML NEB ONE (01:08)
[2024-05-09] MEDS: IPRATROPIUM BROM 0.5MG/2.5ML ONE (01:26)
[2024-05-09 06:39] LABS: Anion Gap 8.6 mEq/L (5.0-15.0); Magnesium 1.8 mg/dL (1.6-2.4); Potassium 3.6 mEq/L (3.5-5.1)
[2024-05-09 06:43] LABS: Absolute Basophils 0.1 K/uL (0-0.5); Absolute Eosinophils 0.1 K/uL (0-0.5); Absolute Monocytes 0.9 K/uL (0.1-1.3); Absolute Neutrophil 8.7 K/uL (1.8-8.0); Basophils % 0.6 % (0-1.3); Hematocrit 27.8 % (36.0-45.0); Hemoglobin 9.4 g/dL (12.0-15.0); Lymphocytes % 17.2 % (15.3-44.8); MCH 33.4 pg (27.0-35.0); MCHC 33.9 g/dL (32.0-36.0); MCV 98.5 fL (80-100); MPV 7.9 fL (7.6-11.3); Monocytes % 7.4 % (3.3-12.3); Neutrophils % 73.8 % (41.7-73.7); Platelets 501 thou/uL (152-406); RBC Red Blood Cell Count 2.82 M/uL (3.86-4.86)
--- NOTE | 2024-05-09 07:34 | RAD REPORT ---
Procedure: Chest Pa And Lat (2 Views) HISTORY: Cough COMPARISON: May 07, 2024 FINDINGS: No significant change in the opacity mid to lower right hemithorax. Mild left basilar opacity unchanged The heart is normal size. IMPRESSION: No significant change in the opacity mid to lower right hemithorax. This probably represents a combin ation of moderate pleural effusion and pneumonia, atelectasis or mass
[2024-05-09] MEDS: POTASSIUM 25 MEQ EFFERV TAB PO ONE (09:15)
[2024-05-09 09:44] LABS: Blood Morphology Comment NOT SEEN (NOT SEEN); Differential Total Cells Count 100; Lymphocytes 17 % (15-42); Metamyelocytes 3 % (0-0); Monocytes 13 % (0-10); Platelet Estimate INCR; Platelets Clumped FEW; Segmented Neutrophils 66 % (40-80)
[2024-05-09 10:06] VITALS: O2SAT 95
[2024-05-09 12:45] VITALS: BP 122/72; TEMP 98
--- NOTE | 2024-05-09 22:48 | P.PN ---
Date of Service: 05/09/24 Vital Signs Temp Pulse Resp BP Pulse Ox 98.0 F 103 H 28 H 122/72 95 05/09/24 12:00 05/09/24 12:00 05/09/24 12:00 05/09/24 12:00 05/09/24 12:00 Microbiology Results 04/30/24 18:36 Blood - Blood Aerobic Blood Culture - Final Strep Pneumoniae 04/30/24 18:36 Blood - Blood Blood Culture Gram Stain - Final 04/30/24 18:36 Blood - Blood Anaerobic Blood Culture - Final 04/30/24 18:42 Blood - Blood Aerobic Blood Culture - Final Strep Pneumoniae 04/30/24 18:42 Blood - Blood Blood Culture Gram Stain - Final 04/30/24 18:42 Blood - Blood Anaerobic Blood Culture - Final Assessment/ Plan: Nephrology No dyspnea No chest pain Persistent cough No acute events overnight Vitals, medications, blood work and imaging reviewed in the chart General: In no apparent distress, Oriented x3, Cooperative HEENT: Atraumatic Neck: Supple Respiratory: Normal air movement Cardiovascular: No edema, Normal S1 S2 Gastrointestinal: Soft and benign, Non-distended Musculoskeletal: No clubbing, No contractures Integumentary: No rashes, No cyanosis Neurological: Normal speech Blood work reviewed in the chart. Imagings Data: EXAM: Chest Single View HISTORY: chest nely COMPARISON: 07/11/2016 FINDINGS: LUNGS/PLEURA: New consolidative airspace disease present the right lower lobe. MEDIASTINUM: The mediastinal silhouette is within normal limits. CARDIAC: Mild cardiomegaly UPPER ABDOMEN: No significant abnormality. BONES: No acute abnormality. LINES/TUBES/OTHER: N/A IMPRESSION: New right lower lobe consolidation concerning for pneumonia/pneumonitis. Imaging follow-up in 4-6 weeks is suggested to ensure improvement and/or resolution. Conclusions/Impression: Stage III DANY in the setting of hypovolemia Proteinuria -No NSAIDs Hyponatremia -Caution with excess water intake Hypokalemia -Replete as ordered HTN -Continue Metoprolol Hypoalbuminemia -Protein supplementation prn Anemia in chronic illness -Monitor H&H Urinary Retention -Bladder scan prn -Straight cath prn Persistent Afib -Continue Sotalol & Metoprolol -Follow up with cardiology CAP -Continue Abx Case reviewed with Dr. Stinson
== END 2024-05-09 15:13 | disposition home health service (06) | DRG 871 ==
LOC: ER 16:29 → ERHOLD 19:47 → 3RD-ICU 22:26 → 2ND 05-06 18:35
PROVIDERS: ADMIT Family Medicine; ATTEND Hospitalist
PROC: 02HV33Z Insertion of Infusion Device into Superior Vena Cava, Percutaneous Approach (ICD-10-PCS; principal; 2024-05-01)
PROC: 0T9B70Z Drainage of Bladder with Drainage Device, Via Natural or Artificial Opening (ICD-10-PCS; 2024-05-02)
PROC: B2111ZZ Fluoroscopy of Multiple Coronary Arteries using Low Osmolar Contrast (ICD-10-PCS; 2024-05-03)
PROC: 4A023N7 Measurement of Cardiac Sampling and Pressure, Left Heart, Percutaneous Approach (ICD-10-PCS; 2024-05-03)
DX: A41.89 Other specified sepsis (principal); I21.A1 Myocardial infarction type 2; R65.21 Severe sepsis with septic shock; J96.01 Acute respiratory failure with hypoxia; J10.08 Influenza due to other identified influenza virus with other specified pneumonia; J13 Pneumonia due to Streptococcus pneumoniae; I50.33 Acute on chronic diastolic (congestive) heart failure; E87.1 Hypo-osmolality and hyponatremia; N17.9 Acute kidney failure, unspecified; E87.20 Acidosis, unspecified; I48.19 Other persistent atrial fibrillation; I11.0 Hypertensive heart disease with heart failure; D50.9 Iron deficiency anemia, unspecified; E87.6 Hypokalemia; E78.5 Hyperlipidemia, unspecified; D63.8 Anemia in other chronic diseases classified elsewhere; E88.09 Other disorders of plasma-protein metabolism, not elsewhere classified; G70.00 Myasthenia gravis without (acute) exacerbation; R33.9 Retention of urine, unspecified; Z79.52 Long term (current) use of systemic steroids; Z11.52 Encounter for screening for COVID-19; Z79.899 Other long term (current) drug therapy
CPT/HCPCS: 36415; 71045; 71046; 76937; 80048; 80053; 81001; 82947; 83605; 83735; 83880; 84100; 84132; 84484; 85025; 85610; 85730; 87040; 87077; 87186; 87205; 87804; 87807; 87811; 93005; 93306; 93454; 94010; 94640; 96361; 96365; 96366; 96368; 96375; 97116; 97161; 97530; 99152; 99153; 99285; C1893; J0461; J0692; J0696; J1160; J1171; J1644; J1720; J2003; J2250; J2270; J3010; J3475; J3480; J7030; J7040; J7050; J7512; J7613; J7614; J7644; Q9966